=== PATIENT | male | born 1930 | race Caucasian/White ===

== ENCOUNTER 2018-08-21 16:24 | Inpatient (IN) | payer MEDICARE, OTHER ==
[2018-08-21] MEDS ORDERED: Sodium Chloride 0.9% 10 ML Syringe FLUSH PRN (17:04)
--- NOTE | 2018-08-21 17:09 | EDM.PDOC ---
ED HPI GENERAL MEDICAL PROBLEM - General Chief Complaint: Lower Extremity Injury/Pain Stated Complaint: BAD TOE ON RIGHT FOOT ( BLACK WITH RED STREAK) Time Seen by Provider: 08/21/18 16:41 Source of Information: Reports: Patient, Family (spouse gives the majority of hx , patient does answer yes and no questions but confused with advanced dementia) , RN Notes Reviewed - History of Present Illness INITIAL COMMENTS - FREE TEXT/NARRATIVE: 88-year-old male has been brought here by his for evaluation of what sounds like developing cellulitis right foot. He has had a gangrenous right second toe for about 2 months. Patient has advanced dementia, unable to give any meaningful history. Hx obtained is from his . He has previously been evaluated by Dr. Albright, Real Estate Director who has stated that "he would not survive surgery" but if the foot becomes infected he would need to be admitted for IV antibiotics. His states that his distal foot has started becoming erythematous, swollen over the past 2 or 3 days. There has been no obvious fever or chills. No abdominal pain vomiting or diarrhea. Patient has very advanced dementia with onset of dementia symptoms about 6 or 7 years ago. She has been managing at home up to this point with some hired home assistance help but care has become increasingly difficult. 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 He also is on medication for hypertension and does have a pacemaker. His states that his CODE STATUS is DNR, DNI. - Related Data Allergies Allergy/AdvReac Type Severity Reaction Status Date / Time hydrocodone bitartrate Allergy Severe Hives Verified 08/21/18 16:44 [From [facility]] Sulfa (Sulfonamide Allergy Severe Hives Verified 08/21/18 16:44 Antibiotics) acetaminophen [From [facility]] Allergy Unknown Hives Verified 08/21/18 16:44 donepezil [Donepezil] Allergy Unknown Diarrhea Verified 08/21/18 16:44 quetiapine Allergy Unknown Agitation Verified 08/21/18 16:44 Home Meds: Home Meds Aspirin [Adult Low Dose Aspirin EC] 81 mg PO DAILY 12/10/13 [History] Dutasteride [Avodart] 0.5 mg PO DAILY 12/10/13 [History] Furosemide [Lasix] 40 mg PO DAILY 12/10/13 [History] Insulin Aspart [Novolog Flexpen] 0 unit SUBCUT ACDIN 12/10/13 [History] Insulin Aspart [Novolog Flexpen] 12 unit SQ [id number] 12/10/13 [History] Insulin Glarg,Human.Rec.Analog [Lantus Solostar] 20 unit SQ BID 12/10/13 [ History] Isosorbide Mononitrate [Imdur] 60 mg PO DAILY 12/10/13 [History] Nebivolol [Bystolic] 20 mg PO DAILY 12/10/13 [History] atorvaSTATin [Lipitor] 10 mg PO DAILY 12/10/13 [History] Nitroglycerin 0.4 mg SL ONCALL PRN #30 12/15/13 [Rx] Past Medical History HEENT History: Reports: Other (See Below) Other HEENT History: lens implanted Cardiovascular History: Reports: Hypertension, Pacemaker Respiratory History: Reports: Pneumonia, Recurrent Gastrointestinal History: Reports: Cholelithiasis Genitourinary History: Reports: Prostate Disorder Endocrine/Metabolic History: Reports: Diabetes, Type II (Uses insulin for diabetes control. Has not yet eaten today and has not taken insulin yet today.) - Past Surgical History HEENT Surgical History: Reports: Eye Surgery GI Surgical History: Reports: Cholecystectomy Social & Family History - Caffeine Use Caffeine Use: Reports: Coffee - Living Situation & Occupation Living situation: Reports: , with Spouse (He was in country house for the last month but got out on Sunday, February 18. His was having surgery and could not look after him for a period of time) Occupation: Retired Review of Systems - Review of Systems Review Of Systems: See Below Constitutional: Reports: No Symptoms Mouth/Throat: Reports: No Symptoms Respiratory: Denies: Shortness of Breath Cardiovascular: Denies: Chest Pain GI/Abdominal: Denies: Abdominal Pain, Diarrhea, Vomiting Musculoskeletal: Reports: Other (Gangrenous right second toe, now developing swelling and erythema distal right foot) Skin: Reports: Erythema (Distal right foot) Neurological: Reports: Difficulty Walking (Walks with a cane), Weakness ( Generalized) ED EXAM, GENERAL - Physical Exam Exam: See Below General Appearance: Alert, Anxious (Mild) Eye Exam: Bilateral Eye: PERRL Throat/Mouth: Normal Inspection Neck: Supple Respiratory/Chest: No Respiratory Distress, Lungs Clear, Normal Breath Sounds Cardiovascular: Regular Rate, Rhythm GI/Abdominal: Soft, Non-Tender, Other (Moderately distended) Extremities: Redness (There is redness of the distal right foot, mild swelling) , Other (Right second toe is gangrenous, walk, foul-smelling, no active drainage ) Skin Exam: Warm, Other (Multiple excoriated lesions of his anterior legs bilateral, states he "picks at his legs") Course - Vital Signs Last Recorded V/S: Last Vital Signs Temp 97.2 F 08/21/18 16:35 Pulse 83 08/21/18 16:35 Resp 18 08/21/18 16:35 BP 154/73 H 08/21/18 16:35 Pulse Ox 96 08/21/18 16:35 - Orders/Labs/Meds Orders: Active Orders 24 hr Category Date Time Status EKG Documentation Completion [RC] ASDIRECTED Care 08/21/18 19:34 Active Notify Provider Consults [RC] ASDIRECTED Care 08/21/18 19:18 Active POC Glucose [Blood Glucose Check, Bedside] [RC] ONETIME Care 08/21/18 17:04 Active Peripheral IV Care [RC] . DIRECTED Care 08/21/18 17:05 Active Consult to Physician [CONS] Urgent Cons 08/21/18 19:16 Active CBC WITH AUTO DIFF [HEME] AM Lab 08/22/18 05:11 Ordered COMPREHENSIVE METABOLIC PN,CMP [CHEM] AM Lab 08/22/18 05:11 Ordered CULTURE BLOOD [BC] Stat Lab 08/21/18 18:15 Received GLYCOSYLATED HEMOGLOBIN,HGBA1C [CHEM] AM Lab 08/22/18 05:11 Ordered INR,PT,PROTHROMBIN TIME [COAG] AM Lab 08/22/18 05:11 Ordered LACTIC ACID [CHEM] AM Lab 08/22/18 05:11 Ordered LACTIC ACID [CHEM] Stat Lab 08/21/18 19:29 Ordered LACTIC ACID [CHEM] Timed Lab 08/21/18 19:29 Ordered PHOSPHORUS [CHEM] AM Lab 08/22/18 05:00 Ordered TROPONIN I [CHEM] AM Lab 08/22/18 05:11 Ordered Aspirin [Halfprin] Med 08/22/18 09:00 Active 81 mg PO DAILY Carvedilol [Coreg] Med 08/22/18 07:00 Active 12.5 mg PO BIDMEALS Finasteride [Proscar] Med 08/22/18 09:00 Active 5 mg PO DAILY Piperacillin/Tazobactam [Piperacil-Tazobact] 4.5 gm Med 08/21/18 18:30 Active Sodium Chloride 0.9% [Normal Saline] 100 ml IV Q8H Simvastatin [Zocor] Med 08/22/18 21:00 Active 10 mg PO BEDTIME Sodium Chloride 0.9% [Saline Flush] Med 08/21/18 17:04 Active 10 ml FLUSH ASDIRECTED PRN Vancomycin [Vancocin] 1 gm Med 08/21/18 19:35 Ordered Sodium Chloride 0.9% [Normal Saline] 250 ml IV ONETIME Peripheral IV Insertion Pediatric [OM.PC] Routine Oth 08/21/18 17:05 Ordered EKG 12 Lead [EK] AM Ther 08/22/18 05:11 Ordered Medication Orders Aspirin (Halfprin) 81 mg PO DAILY PARUL Carvedilol (Coreg) 12.5 mg PO BIDMEALS PARUL Finasteride (Proscar) 5 mg PO DAILY PARUL Piperacillin Sod/Tazobactam (Sod 4.5 gm/ Sodium Chloride) 100 mls @ 25 mls/hr IV Q8H PARUL Last Admin: 08/21/18 18:30 Dose: 200 mls/hr Vancomycin HCl 1 gm/ Sodium (Chloride) 250 mls @ 250 mls/hr IV ONETIME ONE Stop: 08/21/18 20:34 Simvastatin (Zocor) 10 mg PO BEDTIME PARUL Sodium Chloride (Saline Flush) 10 ml FLUSH ASDIRECTED PRN PRN Reason: Keep Vein Open Last Admin: 08/21/18 18:43 Dose: 10 ml Labs: Laboratory Tests 08/21/18 08/21/18 08/21/18 Range/Units 18:15 18:15 18:15 WBC 14.38 H (4.23-9.07) K/mm3 RBC 3.59 L (4.63-6.08) M/mm3 Hgb 10.3 L D (13.7-17.5) gm/L Hct 31.9 L (40.1-51.0) % MCV 88.9 (79.0-92.2) fl MCH 28.7 (25.7-32.2) pg MCHC 32.3 (32.2-35.5) g/dl RDW Std Deviation 46.7 H (35.1-43.9) fL Plt Count 340 H (163-337) K/mm3 MPV 10.0 (9.4-12.3) fl Neutrophils % (Manual) 86 H (40-60) % Band Neutrophils % 0 (0-10) % Lymphocytes % (Manual) 11 L (20-40) % Atypical Lymphs % 0 % Monocytes % (Manual) 3 (2-10) % Eosinophils % (Manual) 0 L (0.8-7.0) % Basophils % (Manual) 0 L (0.2-1.2) Platelet Estimate Adequate RBC Morph Comment Normal Sodium 138 (136-145) mEq/L Potassium 3.5 (3.5-5.1) mEq/L Chloride 101 (98-107) mEq/L Carbon Dioxide 27 (21-32) mEq/L Anion Gap 13.5 (5-15) BUN 27 H (7-18) mg/dL Creatinine 1.5 H (0.7-1.3) mg/dL Est Cr Clr Drug Dosing 32.30 mL/min Estimated GFR (MDRD) 44 (>60) mL/min BUN/Creatinine Ratio 18.0 (14-18) Glucose 211 H (83-115) mg/dL POC Glucose (83-110) mg/dL Lactic Acid (0.4-2.0) mmol/L Calcium 8.6 (8.5-10.1) mg/dL Total Bilirubin 1.2 H (0.2-1.0) mg/dL AST 18 (15-37) U/L ALT 21 (16-63) U/L Alkaline Phosphatase 116 (46-116) U/L NT-Pro-B Natriuret Pep 1384 H (0-450) pg/mL Total Protein 7.7 (6.4-8.2) g/dl Albumin 2.9 L (3.4-5.0) g/dl Globulin 4.8 gm/dL Albumin/Globulin Ratio 0.6 L (1-2) 08/21/18 08/21/18 Range/Units 18:15 18:33 WBC (4.23-9.07) K/mm3 RBC (4.63-6.08) M/mm3 Hgb (13.7-17.5) gm/L Hct (40.1-51.0) % MCV (79.0-92.2) fl MCH (25.7-32.2) pg MCHC (32.2-35.5) g/dl RDW Std Deviation (35.1-43.9) fL Plt Count (163-337) K/mm3 MPV (9.4-12.3) fl Neutrophils % (Manual) (40-60) % Band Neutrophils % (0-10) % Lymphocytes % (Manual) (20-40) % Atypical Lymphs % % Monocytes % (Manual) (2-10) % Eosinophils % (Manual) (0.8-7.0) % Basophils % (Manual) (0.2-1.2) Platelet Estimate RBC Morph Comment Sodium (136-145) mEq/L Potassium (3.5-5.1) mEq/L Chloride (98-107) mEq/L Carbon Dioxide (21-32) mEq/L Anion Gap (5-15) BUN (7-18) mg/dL Creatinine (0.7-1.3) mg/dL Est Cr Clr Drug Dosing mL/min Estimated GFR (MDRD) (>60) mL/min BUN/Creatinine Ratio (14-18) Glucose (83-115) mg/dL POC Glucose 199 H (83-110) mg/dL Lactic Acid 2.2 H (0.4-2.0) mmol/L Calcium (8.5-10.1) mg/dL Total Bilirubin (0.2-1.0) mg/dL AST (15-37) U/L ALT (16-63) U/L Alkaline Phosphatase (46-116) U/L NT-Pro-B Natriuret Pep (0-450) pg/mL Total Protein (6.4-8.2) g/dl Albumin (3.4-5.0) g/dl Globulin gm/dL Albumin/Globulin Ratio (1-2) Meds: Medications Generic Name Dose Route Start Last Admin Trade Name Freq PRN Reason Stop Dose Admin Aspirin 81 mg 08/22/18 09:00 Halfprin PO DAILY PARUL Carvedilol 12.5 mg 08/22/18 07:00 Coreg PO BIDMEALS PARUL Finasteride 5 mg 08/22/18 09:00 Proscar PO DAILY PARUL Piperacillin Sod/Tazobactam 100 mls @ 25 mls/hr 08/21/18 18:30 08/21/18 18:30 Sod 4.5 gm/ Sodium Chloride IV 200 mls/hr Q8H PARUL Administration Vancomycin HCl 1 gm/ Sodium 250 mls @ 250 mls/hr 08/21/18 19:35 Chloride IV 08/21/18 20:34 ONETIME ONE Simvastatin 10 mg 08/22/18 21:00 Zocor PO BEDTIME PARUL Sodium Chloride 10 ml 08/21/18 17:04 08/21/18 18:43 Saline Flush FLUSH 10 ml ASDIRECTED PRN Administration Keep Vein Open Discontinued Medications Generic Name Dose Route Start Last Admin Trade Name Freq PRN Reason Stop Dose Admin Lidocaine HCl Confirm 08/21/18 17:52 08/21/18 17:58 Xylocaine-Mpf 1% Administered 08/21/18 17:53 Not Given Dose 2 mls @ as directed .ROUTE .STK-MED ONE Sodium Chloride 500 mls @ 999 mls/hr 08/21/18 18:56 08/21/18 19:18 Normal Saline IV 08/21/18 19:26 999 mls/hr .BOLUS ONE Administration Lidocaine HCl 2 ml 08/21/18 17:56 08/21/18 17:58 Xylocaine-Mpf 1% .XX 08/21/18 17:57 2 ml ONETIME ONE Administration - Re-Assessments/Exams Free Text/Narrative Re-Assessment/Exam: 08/21/18 19:08. Have called Dr Puckett, Hospitalist systems management consultant to discuss findings, need for admission. He has asked that I get a surgical consult first. Dr Cortes, General Surgeon systems management consultant has come to ED, examined foot. Does not recomend surgery at this time, does not believe he is a surgical candidate from a general health standpoint and anesthesia risk. Recomends IV antibiotics, will dictate a note in the morning. Of note Samantha, our hospital criminal justice social worker has also stopped by at time of patient arrival and informs me that Kristine Frances, Adult protection criminal justice social worker has filed an open adult protection report that patient is needing care at a higher level than what his is able to provide at home in terms of daily cares, advancing dementia. She has asked that he be admitted to the hospital for treatment of his foot infection, any other medical needs and than consideration for intermediate placement. I have shared this information with Dr Puckett who is discussing sx and situation with family at this time. As previously noted patient had advanced dementia, is DNR, DNI. Departure - Departure Time of Disposition: 19:04 Disposition: Admitted As Inpatient 65 Condition: Poor Clinical Impression: Peripheral vascular disease, Gangrenous toe Cellulitis Qualifiers: Site of cellulitis: extremity Site of cellulitis of extremity: lower extremity Laterality: right Qualified Code(s): L03.115 - Cellulitis of right lower limb - Discharge Information Referrals: Murphy Gan MD [Primary Care Provider] - Forms: ED Department Discharge ED Communication - Discussed Case With (1) Discussed Case With (1): Admitting Provider (Lavern, decision to admit at about 19:00.) - My Orders Last 24 Hours: My Active Orders 08/21/18 17:04 POC Glucose [Blood Glucose Check, Bedside] [RC] ONETIME Sodium Chloride 0.9% [Saline Flush] 10 ml FLUSH ASDIRECTED PRN 08/21/18 17:05 Peripheral IV Care [RC] . DIRECTED Peripheral IV Insertion Pediatric [OM.PC] Routine 08/21/18 18:15 CULTURE BLOOD [BC] Stat 08/21/18 18:30 Piperacillin/Tazobactam [Piperacil-Tazobact] 4.5 gm Sodium Chloride 0.9% [ Normal Saline] 100 ml IV Q8H 08/21/18 19:16 Consult to Physician [CONS] Urgent 08/21/18 19:18 Notify Provider Consults [RC] ASDIRECTED - Assessment/Plan Last 24 Hours: My Active Orders 08/21/18 17:04 POC Glucose [Blood Glucose Check, Bedside] [RC] ONETIME Sodium Chloride 0.9% [Saline Flush] 10 ml FLUSH ASDIRECTED PRN 08/21/18 17:05 Peripheral IV Care [RC] . DIRECTED Peripheral IV Insertion Pediatric [OM.PC] Routine 08/21/18 18:15 CULTURE BLOOD [BC] Stat 08/21/18 18:30 Piperacillin/Tazobactam [Piperacil-Tazobact] 4.5 gm Sodium Chloride 0.9% [ Normal Saline] 100 ml IV Q8H 08/21/18 19:16 Consult to Physician [CONS] Urgent 08/21/18 19:18 Notify Provider Consults [RC] ASDIRECTED
[2018-08-21] MEDS ORDERED: Lidocaine 1% 2 ML ONE (17:52)
[2018-08-21] MEDS ORDERED: Lidocaine 1% PF 2 ML SDV ONE (17:56)
[2018-08-21] MEDS: Piperacillin/Tazobactam 4.5 GM in Sodium Chloride 0.9% 100 ML IV SCH (18:30)
[2018-08-21] MEDS ORDERED: Sodium Chloride 0.9% 500 ML IV ONE (18:56)
--- NOTE | 2018-08-21 19:13 | CR ---
Chest: Portable view of the chest was obtained. Comparison: Prior chest x-ray of 02/21/18. Heart size and mediastinum are within normal limits for portable technique. Lungs are clear with no acute parenchymal change. Minimal scarring is noted within the left lung base. Pacemaker is noted. Bony structures are grossly intact. Impression: 1. Minimal scarring within the left base. Other incidental findings. Nothing acute is appreciated. Diagnostic code #2
[2018-08-21] MEDS ORDERED: HYDROmorphone 1 MG/ML Syringe IVPUSH PRN (19:43)
[2018-08-21] MEDS ORDERED: Ondansetron 4 MG/2 ML SDV IV PRN (19:43)
--- NOTE | 2018-08-21 19:53 | PCM.HP ---
H&P History of Present Illness - General Date of Service: 08/21/18 Admit Problem/Dx: Admission Diagnosis/Problem Admission Diagnosis/Problem Gangrene of toe 88 yo WM with DM, dementia, pacemaker admitted with gangrenous right second toe , started 7 weeks ago, visited local performance instructor, no abx prescribed. noted increased edema, erythema, was brought to ED. Surgery consulted, discussed. Admitted as IP for further treatment. Source of Information: Family - Related Data Allergies/Adverse Reactions: Allergies Allergy/AdvReac Type Severity Reaction Status Date / Time hydrocodone bitartrate Allergy Severe Hives Verified 08/21/18 16:44 [From [place]] Sulfa (Sulfonamide Allergy Severe Hives Verified 08/21/18 16:44 Antibiotics) acetaminophen [From [place]] Allergy Unknown Hives Verified 08/21/18 16:44 donepezil [Donepezil] Allergy Unknown Diarrhea Verified 08/21/18 16:44 quetiapine Allergy Unknown Agitation Verified 08/21/18 16:44 Home Medications: Home Meds Aspirin [Adult Low Dose Aspirin EC] 81 mg PO DAILY 12/10/13 [History] Dutasteride [Avodart] 0.5 mg PO DAILY 12/10/13 [History] Furosemide [Lasix] 40 mg PO DAILY 12/10/13 [History] Insulin Aspart [Novolog Flexpen] 0 unit SUBCUT ACDIN 12/10/13 [History] Insulin Aspart [Novolog Flexpen] 12 unit SQ ACBRKBED 12/10/13 [History] Insulin Glarg,Human.Rec.Analog [Lantus Solostar] 20 unit SQ BID 12/10/13 [ History] Isosorbide Mononitrate [Imdur] 60 mg PO DAILY 12/10/13 [History] Nebivolol [Bystolic] 20 mg PO DAILY 12/10/13 [History] atorvaSTATin [Lipitor] 10 mg PO DAILY 12/10/13 [History] Nitroglycerin 0.4 mg SL ONCALL PRN #30 12/15/13 [Rx] Past Medical History HEENT History: Reports: Other (See Below) Other HEENT History: lens implanted Cardiovascular History: Reports: Hypertension, Pacemaker Respiratory History: Reports: Pneumonia, Recurrent Gastrointestinal History: Reports: Cholelithiasis Genitourinary History: Reports: Prostate Disorder Neurological History: Reports: Alzheimers Disease Endocrine/Metabolic History: Reports: Diabetes, Type II (Uses insulin for diabetes control. Has not yet eaten today and has not taken insulin yet today.) Oncologic (Cancer) History: Reports: Prostate Dermatologic History: Reports: Cellulitis - Past Surgical History HEENT Surgical History: Reports: Eye Surgery GI Surgical History: Reports: Cholecystectomy Social & Family History - Family History Family Medical History: Noncontributory - Tobacco Use Smoking Status *Q: Former Smoker Years of Tobacco use: 50 Packs/Tins Daily: 1 Used Tobacco, but Quit: No - Caffeine Use Caffeine Use: Reports: Coffee - Recreational Drug Use Recreational Drug Use: No - Living Situation & Occupation Living situation: Reports: , with Spouse (He was in country house for the last month but got out on Sunday, February 18. His was having surgery and could not look after him for a period of time) Occupation: Retired H&P Review of Systems - Review of Systems: Review Of Systems: See Below General: Reports: Weight Loss. Denies: Fever, Chills HEENT: Reports: No Symptoms Pulmonary: Denies: Wheezing, Cough, Sputum Cardiovascular: Reports: Edema. Denies: Palpitations, Syncope Gastrointestinal: Reports: Diarrhea, Decreased Appetite. Denies: Hematemesis, Hematochezia, Melena Genitourinary: Reports: Urgency, Incontinence Musculoskeletal: Reports: No Symptoms Skin: Denies: Jaundice, Bruising Psychiatric: Reports: Confusion. Denies: Suicidal Ideation Neurological: Reports: Difficulty Walking. Denies: Seizure, Syncope Hematologic/Lymphatic: Denies: Easy Bleeding, Easy Bruising Exam - Exam Exam: See Below - Vital Signs Vital Signs: Last Vital Signs Temp 97.2 F 08/21/18 16:35 Pulse 83 08/21/18 16:35 Resp 18 08/21/18 16:35 BP 154/73 H 08/21/18 16:35 Pulse Ox 96 08/21/18 16:35 Weight: 204 lb - Exam General: Alert, Oriented (self only), Cooperative HEENT: Conjunctiva Clear, EOMI Neck: Supple, Trachea Midline Lungs: Clear to Auscultation, Normal Respiratory Effort. No: Wheezing Cardiovascular: Regular Rate, Normal S1, Normal S2. No: Rubs GI/Abdominal Exam: Normal Bowel Sounds, Soft, Non-Tender Extremities: Other (right second toe gangrenous, erythema, edema mid metatarsal. ) Peripheral Pulses: 1+: Dorsalis Pedis (L), Dorsalis Pedis (R), 2+: Carotid (L), Carotid (R) Skin: Warm, Dry Neurological: Cranial Nerves Intact Neuro Extensive - Mental Status: Disorientation to Place Psychiatric: Normal Affect - Patient Data Lab Results Last 24 hrs: Laboratory Results - last 24 hr 08/21/18 08/21/18 08/21/18 Range/Units 18:15 18:15 18:15 WBC 14.38 H (4.23-9.07) K/mm3 RBC 3.59 L (4.63-6.08) M/mm3 Hgb 10.3 L D (13.7-17.5) gm/L Hct 31.9 L (40.1-51.0) % MCV 88.9 (79.0-92.2) fl MCH 28.7 (25.7-32.2) pg MCHC 32.3 (32.2-35.5) g/dl RDW Std Deviation 46.7 H (35.1-43.9) fL Plt Count 340 H (163-337) K/mm3 MPV 10.0 (9.4-12.3) fl Neutrophils % (Manual) 86 H (40-60) % Band Neutrophils % 0 (0-10) % Lymphocytes % (Manual) 11 L (20-40) % Atypical Lymphs % 0 % Monocytes % (Manual) 3 (2-10) % Eosinophils % (Manual) 0 L (0.8-7.0) % Basophils % (Manual) 0 L (0.2-1.2) Platelet Estimate Adequate RBC Morph Comment Normal Sodium 138 (136-145) mEq/L Potassium 3.5 (3.5-5.1) mEq/L Chloride 101 (98-107) mEq/L Carbon Dioxide 27 (21-32) mEq/L Anion Gap 13.5 (5-15) BUN 27 H (7-18) mg/dL Creatinine 1.5 H (0.7-1.3) mg/dL Est Cr Clr Drug Dosing 32.30 mL/min Estimated GFR (MDRD) 44 (>60) mL/min BUN/Creatinine Ratio 18.0 (14-18) Glucose 211 H (83-115) mg/dL POC Glucose (83-110) mg/dL Lactic Acid (0.4-2.0) mmol/L Calcium 8.6 (8.5-10.1) mg/dL Total Bilirubin 1.2 H (0.2-1.0) mg/dL AST 18 (15-37) U/L ALT 21 (16-63) U/L Alkaline Phosphatase 116 (46-116) U/L NT-Pro-B Natriuret Pep 1384 H (0-450) pg/mL Total Protein 7.7 (6.4-8.2) g/dl Albumin 2.9 L (3.4-5.0) g/dl Globulin 4.8 gm/dL Albumin/Globulin Ratio 0.6 L (1-2) 08/21/18 08/21/18 Range/Units 18:15 18:33 WBC (4.23-9.07) K/mm3 RBC (4.63-6.08) M/mm3 Hgb (13.7-17.5) gm/L Hct (40.1-51.0) % MCV (79.0-92.2) fl MCH (25.7-32.2) pg MCHC (32.2-35.5) g/dl RDW Std Deviation (35.1-43.9) fL Plt Count (163-337) K/mm3 MPV (9.4-12.3) fl Neutrophils % (Manual) (40-60) % Band Neutrophils % (0-10) % Lymphocytes % (Manual) (20-40) % Atypical Lymphs % % Monocytes % (Manual) (2-10) % Eosinophils % (Manual) (0.8-7.0) % Basophils % (Manual) (0.2-1.2) Platelet Estimate RBC Morph Comment Sodium (136-145) mEq/L Potassium (3.5-5.1) mEq/L Chloride (98-107) mEq/L Carbon Dioxide (21-32) mEq/L Anion Gap (5-15) BUN (7-18) mg/dL Creatinine (0.7-1.3) mg/dL Est Cr Clr Drug Dosing mL/min Estimated GFR (MDRD) (>60) mL/min BUN/Creatinine Ratio (14-18) Glucose (83-115) mg/dL POC Glucose 199 H (83-110) mg/dL Lactic Acid 2.2 H (0.4-2.0) mmol/L Calcium (8.5-10.1) mg/dL Total Bilirubin (0.2-1.0) mg/dL AST (15-37) U/L ALT (16-63) U/L Alkaline Phosphatase (46-116) U/L NT-Pro-B Natriuret Pep (0-450) pg/mL Total Protein (6.4-8.2) g/dl Albumin (3.4-5.0) g/dl Globulin gm/dL Albumin/Globulin Ratio (1-2) Result Diagrams: 08/21/18 18:15 08/21/18 18:15 - Problem List (1) Gangrenous toe SNOMED Code(s): 022901783 ICD Code: I96 - GANGRENE, NOT ELSEWHERE CLASSIFIED Status: Acute Current Visit: Yes (2) Diabetes mellitus SNOMED Code(s): 93012922 ICD Code: E11.9 - TYPE 2 DIABETES MELLITUS WITHOUT COMPLICATIONS Status: Acute Current Visit: Yes Qualifiers: Diabetes mellitus type: type 2 Diabetes mellitus chcf insulin use: with chcf use Diabetes mellitus complication status: with circulatory complication Diabetes mellitus complication detail: with peripheral angiopathy with gangrene Qualified Code(s): E11.52 - Type 2 diabetes mellitus with diabetic peripheral angiopathy with gangrene; 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 Problem List Initiated/Reviewed/Updated: Yes Orders Last 24hrs: Active Orders 24 hr Category Date Time Status Patient Status [ADT] Routine ADT 08/21/18 19:40 Ordered Bedrest Bedside Commode [RC] ASDIRECTED Care 08/21/18 19:43 Ordered Blood Glucose Check, Bedside [RC] Q6HR Care 08/21/18 19:38 Ordered Blood Glucose Check, Bedside [RC] QIDACANDBED Care 08/21/18 19:43 Ordered EKG Documentation Completion [RC] ASDIRECTED Care 08/21/18 19:34 Ordered Height and Weight [RC] DAILY Care 08/21/18 19:43 Ordered Intake and Output [RC] QSHIFT Care 08/21/18 19:43 Ordered Notify Provider Consults [RC] ASDIRECTED Care 08/21/18 19:18 Active Oxygen Therapy [RC] PRN Care 08/21/18 19:43 Ordered POC Glucose [Blood Glucose Check, Bedside] [RC] ONETIME Care 08/21/18 17:04 Active Peripheral IV Care [RC] . DIRECTED Care 08/21/18 17:05 Active Vital Signs [RC] Q4H Care 08/21/18 19:40 Ordered Vital Signs [RC] Q4H Care 08/21/18 19:43 Ordered Consult to Physician [CONS] Urgent Cons 08/21/18 19:16 Active Consistent Carbohydrate Diet [DIET] Diet 08/21/18 Breakfast Ordered Foot wo Cont Rt [CT] Stat Exams 08/21/18 19:39 Ordered CBC WITH AUTO DIFF [HEME] AM Lab 08/22/18 05:11 Ordered COMPREHENSIVE METABOLIC PN,CMP [CHEM] AM Lab 08/22/18 05:11 Ordered CULTURE BLOOD [BC] Stat Lab 08/21/18 18:15 Received GLYCOSYLATED HEMOGLOBIN,HGBA1C [CHEM] AM Lab 08/22/18 05:11 Ordered INR,PT,PROTHROMBIN TIME [COAG] AM Lab 08/22/18 05:11 Ordered LACTIC ACID [CHEM] AM Lab 08/22/18 05:11 Ordered LACTIC ACID [CHEM] Stat Lab 08/21/18 19:29 Ordered LACTIC ACID [CHEM] Timed Lab 08/21/18 19:29 Ordered PHOSPHORUS [CHEM] AM Lab 08/22/18 05:00 Ordered PTT,PARTIAL THROMBOPLSTIN TIME [COAG] AM Lab 08/22/18 05:11 Ordered TROPONIN I [CHEM] AM Lab 08/22/18 05:11 Ordered UA W/MICROSCOPIC [URIN] Routine Lab 08/21/18 19:43 Ordered Aspirin [Halfprin] Med 08/22/18 09:00 Ordered 81 mg PO DAILY Docusate Sodium [Colace] Med 08/21/18 21:00 Ordered 100 mg PO BID Dutasteride Med 08/22/18 09:00 Ordered 0.5 mg PO DAILY HYDROmorphone [Dilaudid] Med 08/21/18 19:43 Ordered 0.25 mg IVPUSH Q2H PRN Heparin Sodium Med 08/21/18 19:45 Ordered 5,000 units SUBCUT Q8H Insulin Lispro [HumaLOG] Med 08/21/18 22:00 Ordered See Protocol SUBCUT QIDACANDBED Lactated Ringers @ 100 MLS/HR(1000ml Bag) Med 08/21/18 19:45 Ordered Lactated Ringers [Ringers, Lactated] 1,000 ml IV ASDIRECTED Nebivolol [Bystolic] Med 08/22/18 09:00 Ordered 20 mg PO DAILY Ondansetron [Zofran] Med 08/21/18 19:43 Ordered 4 mg IV Q4H PRN Piperacillin/Tazobactam [Piperacil-Tazobact] 4.5 gm Med 08/21/18 18:30 Active Sodium Chloride 0.9% [Normal Saline] 100 ml IV Q8H Sodium Chloride 0.9% [Saline Flush] Med 08/21/18 17:04 Active 10 ml FLUSH ASDIRECTED PRN Vancomycin [Vancocin] 1 gm Med 08/21/18 19:35 Ordered Sodium Chloride 0.9% [Normal Saline] 250 ml IV ONETIME atorvaSTATin Med 08/22/18 09:00 Ordered 10 mg PO DAILY Peripheral IV Insertion Pediatric [OM.PC] Routine Oth 08/21/18 17:05 Ordered Resuscitation Status Routine Resus Stat 08/21/18 19:43 Ordered EKG 12 Lead [EK] AM Ther 08/22/18 05:11 Ordered Medication Orders Aspirin (Halfprin) 81 mg PO DAILY [facility] Carvedilol (Coreg) 12.5 mg PO BIDMEALS [facility] Docusate Sodium (Colace) 100 mg PO BID [facility] Finasteride (Proscar) 5 mg PO DAILY [facility] Heparin Sodium (Porcine) (Heparin Sodium) 5,000 units SUBCUT Q8H [facility] Hydromorphone HCl (Dilaudid) 0.25 mg IVPUSH Q2H PRN PRN Reason: Pain (severe 7-10) Piperacillin Sod/Tazobactam (Sod 4.5 gm/ Sodium Chloride) 100 mls @ 25 mls/hr IV Q8H [facility] Last Admin: 08/21/18 18:30 Dose: 200 mls/hr Vancomycin HCl 1 gm/ Sodium (Chloride) 250 mls @ 250 mls/hr IV ONETIME ONE Stop: 08/21/18 20:34 Lactated Ringer's (Ringers, Lactated) 1,000 mls @ 100 mls/hr IV ASDIRECTED [facility] Insulin Human Lispro (Humalog) 0 unit SUBCUT QIDACANDBED [facility]; Protocol Ondansetron HCl (Zofran) 4 mg IV Q4H PRN PRN Reason: Nausea/Vomiting Simvastatin (Zocor) 10 mg PO BEDTIME [facility] Sodium Chloride (Saline Flush) 10 ml FLUSH ASDIRECTED PRN PRN Reason: Keep Vein Open Last Admin: 08/21/18 18:43 Dose: 10 ml 1. IV abx, pending BCx. 2. IVF. 3. Surgery consultation, obtained, discussed. 4. Foot CT, possible MRI if warranted. 5. placement SNF after discharge. 6. SSI, A1C. 7. DNR/DNI
[2018-08-21] MEDS ORDERED: Vancomycin 1500 MG in Sodium Chloride 0.9% 500 ML IV SCH ×3 (21:00)
--- NOTE | 2018-08-21 21:06 | CT ---
CT right foot Technique: Multiple axial sections through the right foot were obtained. Intravenous contrast was not utilized. Findings: Diffuse soft tissue edema is seen. Soft tissue air is seen within the second digit. Air is also noted within the bones of the second toe involving distal aspect of the proximal phalanx, middle phalanx and distal phalanx compatible with osteomyelitis. Degenerative change with degenerative cysts are seen within the first MTP joint. Plantar spur is seen. Joint space narrowing and degenerative cystic change is noted within the posterior subtalar joint. Degenerative cystic change is noted between the navicular and first cuneiform bone. Osteopenia is seen. No fracture is identified. Vascular calcification is present. Impression: 1. Diffuse soft tissue edema. 2. Soft tissue air seen within the second digit compatible with cellulitis. 3. Air within the bones of the second toe compatible with osteomyelitis. 4. Degenerative change as noted above. Diagnostic code #5
[2018-08-21] MEDS: Docusate Sodium 100 MG Cap PO SCH (21:43)
[2018-08-21] MEDS: Heparin Sodium 5,000 Units/ML Vial SUBCUT SCH (21:43)
[2018-08-21] MEDS: Insulin Lispro 100 Units/ML 3 ML Vial SUBCUT SCH (21:48)
[2018-08-22] MEDS: Piperacillin/Tazobactam 4.5 GM in Sodium Chloride 0.9% 100 ML IV SCH ×3 (01:31→18:11)
[2018-08-22] MEDS: Heparin Sodium 5,000 Units/ML Vial SUBCUT SCH ×3 (05:03→21:04)
[2018-08-22] MEDS: Lactated Ringers 1,000 ML IV SCH (05:53)
[2018-08-22] MEDS: Carvedilol 12.5 MG Tab PO SCH ×2 (06:22→18:10)
[2018-08-22] MEDS ORDERED: HYDROmorphone 0.5 MG/0.5 ML Syringe IVPUSH PRN (07:25)
--- NOTE | 2018-08-22 08:49 | PCM.SN ---
Hx. 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 noted increased edema, erythema, was brought to ED. Surgery consulted, discussed. Admitted as IP for further treatment. - Related Data Allergies/Adverse Reactions: Allergies Allergy/AdvReac Type Severity Reaction Status Date / Time hydrocodone bitartrate Allergy Mild Hives Verified 08/22/18 07:58 [From [place]] Sulfa (Sulfonamide Allergy Mild Hives Verified 08/22/18 07:58 Antibiotics) vancomycin Allergy Mild Itching Verified 08/22/18 07:58 acetaminophen [From [place]] Allergy Unknown Hives Verified 08/21/18 16:44 donepezil [Donepezil] AdvReac Unknown Diarrhea Verified 08/22/18 07:58 quetiapine AdvReac Unknown Agitation Verified 08/22/18 07:58 Home Medications: Home Meds Aspirin [Adult Low Dose Aspirin EC] 81 mg PO DAILY 12/10/13 [History] Dutasteride [Avodart] 0.5 mg PO DAILY 12/10/13 [History] Furosemide [Lasix] 40 mg PO DAILY 12/10/13 [History] Insulin Aspart [Novolog Flexpen] 0 unit SUBCUT ACDIN 12/10/13 [History] Insulin Aspart [Novolog Flexpen] 12 unit SQ ACBRKBED 12/10/13 [History] Insulin Glarg,Human.Rec.Analog [Lantus Solostar] 20 unit SQ BID 12/10/13 [ History] Isosorbide Mononitrate [Imdur] 60 mg PO DAILY 12/10/13 [History] Nebivolol [Bystolic] 20 mg PO DAILY 12/10/13 [History] atorvaSTATin [Lipitor] 10 mg PO DAILY 12/10/13 [History] Nitroglycerin 0.4 mg SL ONCALL PRN #30 12/15/13 [Rx] Exam - - Vital Signs Vital Signs: Last Vital Signs Temp 98.1 F 08/22/18 08:00 Pulse 72 08/22/18 08:00 Resp 15 08/22/18 08:00 BP 122/93 H 08/22/18 08:00 Pulse Ox 94 L 05/02/19 08:00 Exam - Vital Signs Vital Signs: Last Vital Signs Temp 98.1 F 08/22/18 08:00 Pulse 72 08/22/18 08:00 Resp 15 08/22/18 08:00 BP 122/93 H 08/22/18 08:00 Pulse Ox 94 L 08/22/18 08:00 Weight: 200 lb 14.4 oz
--- NOTE | 2018-08-22 08:55 | PCM.PN ---
- General Info Date of Service: 08/22/18 Admission Dx/Problem (Free Text): 88 yo WM with DM, dementia, pacemaker admitted with gangrenous right second toe , started 7 weeks ago, visited local water pumper, no abx prescribed. noted increased edema, erythema, was brought to ED. Surgery consulted, discussed. Admitted as IP for further treatment 08/22/2018, denies pain, otherwise unchanged, no major events o/n, CT confirmed edema, no osteo of metatarsals. - Patient Data Vitals - Most Recent: Last Vital Signs Temp 98.1 F 08/22/18 08:00 Pulse 72 08/22/18 08:00 Resp 15 08/22/18 08:00 BP 122/93 H 08/22/18 08:00 Pulse Ox 94 L 08/22/18 08:00 Weight - Most Recent: 200 lb 14.4 oz I&O - Last 24 Hours: Intake & Output 08/21/18 08/22/18 08/22/18 19:59 03:59 11:59 Intake Total 500 Output Total 400 Balance -400 500 Lab Results Last 24 Hours: Laboratory Results - last 24 hr 08/21/18 08/21/18 08/21/18 Range/Units 18:15 18:15 18:15 WBC 14.38 H (4.23-9.07) K/mm3 RBC 3.59 L (4.63-6.08) M/mm3 Hgb 10.3 L D (13.7-17.5) gm/L Hct 31.9 L (40.1-51.0) % MCV 88.9 (79.0-92.2) fl MCH 28.7 (25.7-32.2) pg MCHC 32.3 (32.2-35.5) g/dl RDW Std Deviation 46.7 H (35.1-43.9) fL Plt Count 340 H (163-337) K/mm3 MPV 10.0 (9.4-12.3) fl Neut % (Auto) (34.0-67.9) % Lymph % (Auto) (21.8-53.1) % [place] % (Auto) (5.3-12.2) % Eos % (Auto) (0.8-7.0) Baso % (Auto) (0.1-1.2) % Neut # (Auto) (1.78-5.38) K/mm3 Lymph # (Auto) (1.32-3.57) K/mm3 [place] # (Auto) (0.30-0.82) K/mm3 Eos # (Auto) (0.04-0.54) K/mm3 Baso # (Auto) (0.01-0.08) K/mm3 Neutrophils % (Manual) 86 H (40-60) % Band Neutrophils % 0 (0-10) % Lymphocytes % (Manual) 11 L (20-40) % Atypical Lymphs % 0 % Monocytes % (Manual) 3 (2-10) % Eosinophils % (Manual) 0 L (0.8-7.0) % Basophils % (Manual) 0 L (0.2-1.2) Platelet Estimate Adequate RBC Morph Comment Normal PT (9.5-12.1) SECONDS INR APTT (24-31) SECONDS Sodium 138 (136-145) mEq/L Potassium 3.5 (3.5-5.1) mEq/L Chloride 101 (98-107) mEq/L Carbon Dioxide 27 (21-32) mEq/L Anion Gap 13.5 (5-15) BUN 27 H (7-18) mg/dL Creatinine 1.5 H (0.7-1.3) mg/dL Est Cr Clr Drug Dosing 32.30 mL/min Estimated GFR (MDRD) 44 (>60) mL/min BUN/Creatinine Ratio 18.0 (14-18) Glucose 211 H (83-115) mg/dL POC Glucose (83-110) mg/dL Lactic Acid (0.4-2.0) mmol/L Calcium 8.6 (8.5-10.1) mg/dL Total Bilirubin 1.2 H (0.2-1.0) mg/dL AST 18 (15-37) U/L ALT 21 (16-63) U/L Alkaline Phosphatase 116 (46-116) U/L Troponin I (0.00-0.056) ng/mL NT-Pro-B Natriuret Pep 1384 H (0-450) pg/mL Total Protein 7.7 (6.4-8.2) g/dl Albumin 2.9 L (3.4-5.0) g/dl Globulin 4.8 gm/dL Albumin/Globulin Ratio 0.6 L (1-2) Urine Color (Yellow) Urine Appearance (Clear) Urine pH (5.0-8.0) Ur Specific [place] (1.005-1.030) Urine Protein (Negative) Urine Glucose (UA) (Negative) Urine Ketones (Negative) Urine Occult Blood (Negative) Urine Nitrite (Negative) Urine Bilirubin (Negative) Urine Urobilinogen (0.2-1.0) Ur Leukocyte Esterase (Negative) Urine RBC (0-5) /hpf Urine WBC (0-5) /hpf Ur Squamous Epith Cells (0-5) /hpf Urine Bacteria (FEW) /hpf Hyaline Casts (0-5) /lpf Urine Mucus (FEW) /hpf 08/21/18 08/21/18 08/21/18 Range/Units 18:15 18:33 21:05 WBC (4.23-9.07) K/mm3 RBC (4.63-6.08) M/mm3 Hgb (13.7-17.5) gm/L Hct (40.1-51.0) % MCV (79.0-92.2) fl MCH (25.7-32.2) pg MCHC (32.2-35.5) g/dl RDW Std Deviation (35.1-43.9) fL Plt Count (163-337) K/mm3 MPV (9.4-12.3) fl Neut % (Auto) (34.0-67.9) % Lymph % (Auto) (21.8-53.1) % [place] % (Auto) (5.3-12.2) % Eos % (Auto) (0.8-7.0) Baso % (Auto) (0.1-1.2) % Neut # (Auto) (1.78-5.38) K/mm3 Lymph # (Auto) (1.32-3.57) K/mm3 [place] # (Auto) (0.30-0.82) K/mm3 Eos # (Auto) (0.04-0.54) K/mm3 Baso # (Auto) (0.01-0.08) K/mm3 Neutrophils % (Manual) (40-60) % Band Neutrophils % (0-10) % Lymphocytes % (Manual) (20-40) % Atypical Lymphs % % Monocytes % (Manual) (2-10) % Eosinophils % (Manual) (0.8-7.0) % Basophils % (Manual) (0.2-1.2) Platelet Estimate RBC Morph Comment PT (9.5-12.1) SECONDS INR APTT (24-31) SECONDS Sodium (136-145) mEq/L Potassium (3.5-5.1) mEq/L Chloride (98-107) mEq/L Carbon Dioxide (21-32) mEq/L Anion Gap (5-15) BUN (7-18) mg/dL Creatinine (0.7-1.3) mg/dL Est Cr Clr Drug Dosing mL/min Estimated GFR (MDRD) (>60) mL/min BUN/Creatinine Ratio (14-18) Glucose (83-115) mg/dL POC Glucose 199 H (83-110) mg/dL Lactic Acid 2.2 H 1.5 (0.4-2.0) mmol/L Calcium (8.5-10.1) mg/dL Total Bilirubin (0.2-1.0) mg/dL AST (15-37) U/L ALT (16-63) U/L Alkaline Phosphatase (46-116) U/L Troponin I (0.00-0.056) ng/mL NT-Pro-B Natriuret Pep (0-450) pg/mL Total Protein (6.4-8.2) g/dl Albumin (3.4-5.0) g/dl Globulin gm/dL Albumin/Globulin Ratio (1-2) Urine Color (Yellow) Urine Appearance (Clear) Urine pH (5.0-8.0) Ur Specific [place] (1.005-1.030) Urine Protein (Negative) Urine Glucose (UA) (Negative) Urine Ketones (Negative) Urine Occult Blood (Negative) Urine Nitrite (Negative) Urine Bilirubin (Negative) Urine Urobilinogen (0.2-1.0) Ur Leukocyte Esterase (Negative) Urine RBC (0-5) /hpf Urine WBC (0-5) /hpf Ur Squamous Epith Cells (0-5) /hpf Urine Bacteria (FEW) /hpf Hyaline Casts (0-5) /lpf Urine Mucus (FEW) /hpf 08/21/18 08/21/18 08/22/18 Range/Units 21:09 22:35 06:11 WBC (4.23-9.07) K/mm3 RBC (4.63-6.08) M/mm3 Hgb (13.7-17.5) gm/L Hct (40.1-51.0) % MCV (79.0-92.2) fl MCH (25.7-32.2) pg MCHC (32.2-35.5) g/dl RDW Std Deviation (35.1-43.9) fL Plt Count (163-337) K/mm3 MPV (9.4-12.3) fl Neut % (Auto) (34.0-67.9) % Lymph % (Auto) (21.8-53.1) % [place] % (Auto) (5.3-12.2) % Eos % (Auto) (0.8-7.0) Baso % (Auto) (0.1-1.2) % Neut # (Auto) (1.78-5.38) K/mm3 Lymph # (Auto) (1.32-3.57) K/mm3 [place] # (Auto) (0.30-0.82) K/mm3 Eos # (Auto) (0.04-0.54) K/mm3 Baso # (Auto) (0.01-0.08) K/mm3 Neutrophils % (Manual) (40-60) % Band Neutrophils % (0-10) % Lymphocytes % (Manual) (20-40) % Atypical Lymphs % % Monocytes % (Manual) (2-10) % Eosinophils % (Manual) (0.8-7.0) % Basophils % (Manual) (0.2-1.2) Platelet Estimate RBC Morph Comment PT (9.5-12.1) SECONDS INR APTT (24-31) SECONDS Sodium (136-145) mEq/L Potassium (3.5-5.1) mEq/L Chloride (98-107) mEq/L Carbon Dioxide (21-32) mEq/L Anion Gap (5-15) BUN (7-18) mg/dL Creatinine (0.7-1.3) mg/dL Est Cr Clr Drug Dosing mL/min Estimated GFR (MDRD) (>60) mL/min BUN/Creatinine Ratio (14-18) Glucose (83-115) mg/dL POC Glucose 357 H 220 H (83-110) mg/dL Lactic Acid (0.4-2.0) mmol/L Calcium (8.5-10.1) mg/dL Total Bilirubin (0.2-1.0) mg/dL AST (15-37) U/L ALT (16-63) U/L Alkaline Phosphatase (46-116) U/L Troponin I (0.00-0.056) ng/mL NT-Pro-B Natriuret Pep (0-450) pg/mL Total Protein (6.4-8.2) g/dl Albumin (3.4-5.0) g/dl Globulin gm/dL Albumin/Globulin Ratio (1-2) Urine Color Yellow (Yellow) Urine Appearance Clear (Clear) Urine pH 6.0 (5.0-8.0) Ur Specific [place] 1.015 (1.005-1.030) Urine Protein 1+ H (Negative) Urine Glucose (UA) 1+ H (Negative) Urine Ketones Negative (Negative) Urine Occult Blood Negative (Negative) Urine Nitrite Negative (Negative) Urine Bilirubin Negative (Negative) Urine Urobilinogen 2.0 H (0.2-1.0) Ur Leukocyte Esterase Negative (Negative) Urine RBC Not seen (0-5) /hpf Urine WBC 0-5 (0-5) /hpf Ur Squamous Epith Cells 0-5 (0-5) /hpf Urine Bacteria Rare (FEW) /hpf Hyaline Casts 0-5 (0-5) /lpf Urine Mucus Not seen (FEW) /hpf 08/22/18 08/22/18 08/22/18 Range/Units 07:15 07:15 07:15 WBC 9.45 H (4.23-9.07) K/mm3 RBC 3.15 L (4.63-6.08) M/mm3 Hgb 9.0 L (13.7-17.5) gm/L Hct 28.2 L (40.1-51.0) % MCV 89.5 (79.0-92.2) fl MCH 28.6 (25.7-32.2) pg MCHC 31.9 L (32.2-35.5) g/dl RDW Std Deviation 46.3 H (35.1-43.9) fL Plt Count 304 (163-337) K/mm3 MPV 9.2 L (9.4-12.3) fl Neut % (Auto) 72.9 H (34.0-67.9) % Lymph % (Auto) 15.6 L (21.8-53.1) % [place] % (Auto) 8.9 (5.3-12.2) % Eos % (Auto) 2.2 (0.8-7.0) Baso % (Auto) 0.2 (0.1-1.2) % Neut # (Auto) 6.89 H (1.78-5.38) K/mm3 Lymph # (Auto) 1.47 (1.32-3.57) K/mm3 [place] # (Auto) 0.84 H (0.30-0.82) K/mm3 Eos # (Auto) 0.21 (0.04-0.54) K/mm3 Baso # (Auto) 0.02 (0.01-0.08) K/mm3 Neutrophils % (Manual) (40-60) % Band Neutrophils % (0-10) % Lymphocytes % (Manual) (20-40) % Atypical Lymphs % % Monocytes % (Manual) (2-10) % Eosinophils % (Manual) (0.8-7.0) % Basophils % (Manual) (0.2-1.2) Platelet Estimate RBC Morph Comment PT (9.5-12.1) SECONDS INR APTT (24-31) SECONDS Sodium 138 (136-145) mEq/L Potassium 3.3 L (3.5-5.1) mEq/L Chloride 104 (98-107) mEq/L Carbon Dioxide 25 (21-32) mEq/L Anion Gap 12.3 (5-15) BUN 26 H (7-18) mg/dL Creatinine 1.6 H (0.7-1.3) mg/dL Est Cr Clr Drug Dosing 30.28 mL/min Estimated GFR (MDRD) 41 (>60) mL/min BUN/Creatinine Ratio 16.3 (14-18) Glucose 223 H (83-115) mg/dL POC Glucose (83-110) mg/dL Lactic Acid 0.9 (0.4-2.0) mmol/L Calcium 7.9 L (8.5-10.1) mg/dL Total Bilirubin 0.9 (0.2-1.0) mg/dL AST 16 (15-37) U/L ALT 15 L (16-63) U/L Alkaline Phosphatase 94 (46-116) U/L Troponin I 0.028 (0.00-0.056) ng/mL NT-Pro-B Natriuret Pep (0-450) pg/mL Total Protein 6.6 (6.4-8.2) g/dl Albumin 2.4 L (3.4-5.0) g/dl Globulin 4.2 gm/dL Albumin/Globulin Ratio 0.6 L (1-2) Urine Color (Yellow) Urine Appearance (Clear) Urine pH (5.0-8.0) Ur Specific [place] (1.005-1.030) Urine Protein (Negative) Urine Glucose (UA) (Negative) Urine Ketones (Negative) Urine Occult Blood (Negative) Urine Nitrite (Negative) Urine Bilirubin (Negative) Urine Urobilinogen (0.2-1.0) Ur Leukocyte Esterase (Negative) Urine RBC (0-5) /hpf Urine WBC (0-5) /hpf Ur Squamous Epith Cells (0-5) /hpf Urine Bacteria (FEW) /hpf Hyaline Casts (0-5) /lpf Urine Mucus (FEW) /hpf 08/22/18 Range/Units 07:15 WBC (4.23-9.07) K/mm3 RBC (4.63-6.08) M/mm3 Hgb (13.7-17.5) gm/L Hct (40.1-51.0) % MCV (79.0-92.2) fl MCH (25.7-32.2) pg MCHC (32.2-35.5) g/dl RDW Std Deviation (35.1-43.9) fL Plt Count (163-337) K/mm3 MPV (9.4-12.3) fl Neut % (Auto) (34.0-67.9) % Lymph % (Auto) (21.8-53.1) % [place] % (Auto) (5.3-12.2) % Eos % (Auto) (0.8-7.0) Baso % (Auto) (0.1-1.2) % Neut # (Auto) (1.78-5.38) K/mm3 Lymph # (Auto) (1.32-3.57) K/mm3 [place] # (Auto) (0.30-0.82) K/mm3 Eos # (Auto) (0.04-0.54) K/mm3 Baso # (Auto) (0.01-0.08) K/mm3 Neutrophils % (Manual) (40-60) % Band Neutrophils % (0-10) % Lymphocytes % (Manual) (20-40) % Atypical Lymphs % % Monocytes % (Manual) (2-10) % Eosinophils % (Manual) (0.8-7.0) % Basophils % (Manual) (0.2-1.2) Platelet Estimate RBC Morph Comment PT 11.3 (9.5-12.1) SECONDS INR 1.04 APTT 27 (24-31) SECONDS Sodium (136-145) mEq/L Potassium (3.5-5.1) mEq/L Chloride (98-107) mEq/L Carbon Dioxide (21-32) mEq/L Anion Gap (5-15) BUN (7-18) mg/dL Creatinine (0.7-1.3) mg/dL Est Cr Clr Drug Dosing mL/min Estimated GFR (MDRD) (>60) mL/min BUN/Creatinine Ratio (14-18) Glucose (83-115) mg/dL POC Glucose (83-110) mg/dL Lactic Acid (0.4-2.0) mmol/L Calcium (8.5-10.1) mg/dL Total Bilirubin (0.2-1.0) mg/dL AST (15-37) U/L ALT (16-63) U/L Alkaline Phosphatase (46-116) U/L Troponin I (0.00-0.056) ng/mL NT-Pro-B Natriuret Pep (0-450) pg/mL Total Protein (6.4-8.2) g/dl Albumin (3.4-5.0) g/dl Globulin gm/dL Albumin/Globulin Ratio (1-2) Urine Color (Yellow) Urine Appearance (Clear) Urine pH (5.0-8.0) Ur Specific [place] (1.005-1.030) Urine Protein (Negative) Urine Glucose (UA) (Negative) Urine Ketones (Negative) Urine Occult Blood (Negative) Urine Nitrite (Negative) Urine Bilirubin (Negative) Urine Urobilinogen (0.2-1.0) Ur Leukocyte Esterase (Negative) Urine RBC (0-5) /hpf Urine WBC (0-5) /hpf Ur Squamous Epith Cells (0-5) /hpf Urine Bacteria (FEW) /hpf Hyaline Casts (0-5) /lpf Urine Mucus (FEW) /hpf Taye Results Last 24 Hours: Microbiology 08/21/18 18:15 Anaerobic Blood Culture - Final Blood Med Orders - Current: Current Medications Aspirin (Halfprin) 81 mg PO DAILY [facility] Carvedilol (Coreg) 12.5 mg PO BIDMEALS [facility] Last Admin: 08/22/18 06:22 Dose: 12.5 mg Docusate Sodium (Colace) 100 mg PO BID [facility] Last Admin: 08/21/18 21:43 Dose: 100 mg Finasteride (Proscar) 5 mg PO DAILY [facility] Heparin Sodium (Porcine) (Heparin Sodium) 5,000 units SUBCUT Q8H [facility] Last Admin: 08/22/18 05:03 Dose: 5,000 units Hydromorphone HCl (Dilaudid) 0.25 mg IVPUSH Q2H PRN PRN Reason: Pain (severe 7-10) Piperacillin Sod/Tazobactam (Sod 4.5 gm/ Sodium Chloride) 100 mls @ 25 mls/hr IV Q8H [facility] Last Admin: 08/22/18 01:31 Dose: 200 mls/hr Lactated Ringer's (Ringers, Lactated) 1,000 mls @ 100 mls/hr IV ASDIRECTED [facility] Last Admin: 08/22/18 05:53 Dose: 100 mls/hr Insulin Human Lispro (Humalog) 0 unit SUBCUT QIDACANDBED [facility]; Protocol Last Admin: 08/21/18 21:48 Dose: 5 units Ondansetron HCl (Zofran) 4 mg IV Q4H PRN PRN Reason: Nausea/Vomiting Simvastatin (Zocor) 10 mg PO BEDTIME [facility] Sodium Chloride (Saline Flush) 10 ml FLUSH ASDIRECTED PRN PRN Reason: Keep Vein Open Last Admin: 08/21/18 18:43 Dose: 10 ml Discontinued Medications Hydromorphone HCl (Dilaudid) 0.25 mg IVPUSH Q2H PRN PRN Reason: Pain (severe 7-10) Lidocaine HCl (Xylocaine-Mpf 1%) Confirm Administered Dose 2 mls @ as directed .ROUTE .STK-MED ONE Stop: 08/21/18 17:53 Last Admin: 08/21/18 17:58 Dose: Not Given Sodium Chloride (Normal Saline) 500 mls @ 999 mls/hr IV .BOLUS ONE Stop: 08/21/18 19:26 Last Admin: 08/21/18 19:18 Dose: 999 mls/hr Vancomycin HCl 1 gm/ Sodium (Chloride) 250 mls @ 250 mls/hr IV ONETIME ONE Stop: 08/21/18 20:34 Last Admin: 08/21/18 22:12 Dose: Not Given Vancomycin HCl 1 gm/Vancomycin HCl 500 mg/ Sodium Chloride 500 mls @ 333.025 mls/hr IV Q24H [facility] Last Admin: 08/21/18 21:44 Dose: 333.025 mls/hr Lidocaine HCl (Xylocaine-Mpf 1%) 2 ml .XX ONETIME ONE Stop: 08/21/18 17:57 Last Admin: 08/21/18 17:58 Dose: 2 ml Vancomycin HCl (Pharmacy To Dose - Vancomycin) 1 dose .XX ASDIRECTED [facility] - Exam Physical Findings Comments:: General: Alert, Oriented (self only), Cooperative HEENT: Conjunctiva Clear, EOMI Neck: Supple, Trachea Midline Lungs: Clear to Auscultation, Normal Respiratory Effort. No: Wheezing Cardiovascular: Regular Rate, Normal S1, Normal S2. No: Rubs GI/Abdominal Exam: Normal Bowel Sounds, Soft, Non-Tender Extremities: Other (right second toe gangrenous, erythema, edema mid metatarsal. ) Peripheral Pulses: 1+: Dorsalis Pedis (L), Dorsalis Pedis (R), 2+: Carotid (L), Carotid (R) Skin: Warm, Dry Neurological: Cranial Nerves Intact Neuro Extensive - Mental Status: Disorientation to Place Psychiatric: Normal Affect - Problem List & Annotations (1) Gangrenous toe SNOMED Code(s): 345024915 Code(s): I96 - GANGRENE, NOT ELSEWHERE CLASSIFIED Status: Acute Current Visit: Yes (2) Diabetes mellitus SNOMED Code(s): 58241772 Code(s): E11.9 - TYPE 2 DIABETES MELLITUS WITHOUT COMPLICATIONS Status: Acute Current Visit: Yes Qualifiers: Diabetes mellitus type: type 2 Diabetes mellitus shelter insulin use: with emt intermediate use Diabetes mellitus complication status: with circulatory complication Diabetes mellitus complication detail: with peripheral angiopathy with gangrene Qualified Code(s): E11.52 - Type 2 diabetes mellitus with diabetic peripheral angiopathy with gangrene; Z79.4 - [facility] (current) use of insulin - Problem List Review Problem List Initiated/Reviewed/Updated: Yes - My Orders Last 24 Hours: My Active Orders 08/21/18 19:40 Patient Status [ADT] Routine Vital Signs [RC] Q4HR 08/21/18 19:43 Bedrest Bedside Commode [RC] ASDIRECTED Blood Glucose Check, Bedside [RC] QIDACANDBED Height and Weight [RC] 04 Intake and Output [RC] 04,16 Oxygen Therapy [RC] PRN Ondansetron [Zofran] 4 mg IV Q4H PRN Resuscitation Status Routine 08/21/18 19:45 Lactated Ringers [Ringers, Lactated] 1,000 ml IV ASDIRECTED 08/21/18 20:00 Heparin Sodium 5,000 units SUBCUT Q8H 08/21/18 21:00 Docusate Sodium [Colace] 100 mg PO BID 08/21/18 22:00 Insulin Lispro [HumaLOG] See Protocol SUBCUT QIDACANDBED 08/21/18 23:00 Insert Win Catheter [Insert Urinary Catheter] [OM.PC] Q24H 08/22/18 05:11 EKG 12 Lead [EK] AM 08/22/18 07:00 Carvedilol [Coreg] 12.5 mg PO BIDMEALS 08/22/18 07:15 GLYCOSYLATED HEMOGLOBIN,HGBA1C [CHEM] AM PHOSPHORUS [CHEM] AM 08/22/18 07:25 HYDROmorphone [Dilaudid] 0.25 mg IVPUSH Q2H PRN 08/22/18 09:00 Aspirin [Halfprin] 81 mg PO DAILY Finasteride [Proscar] 5 mg PO DAILY 08/22/18 21:00 Simvastatin [Zocor] 10 mg PO BEDTIME - Plan Plan:: 1. Continue IV abx, pending BCx.Did not tolerate vancomycin, vein irritation vs. anaphylaxis, will hold. 2. IVF. Scr 1.6, at baseline. 3. Surgery consultation, obtained, discussed. 4. Foot CT, no osteomyelitis of metatarsals. 5. placement SNF after discharge. 6. SSI, A1C. 7. DNR/DNI
[2018-08-22 09:02] LABS: HEMOGLOBIN A1C 8.1 % (4.50-6.20)
[2018-08-22] MEDS ORDERED: Potassium Chloride 10% 20 MEQ/15 ML Soln 15 ML UD Cup PO ONE (09:07)
[2018-08-22] MEDS: Insulin Lispro 100 Units/ML 3 ML Vial SUBCUT SCH ×4 (09:38→21:27)
[2018-08-22] MEDS: Aspirin 81 MG Tab.EC PO SCH (09:41)
[2018-08-22] MEDS: Docusate Sodium 100 MG Cap PO SCH ×2 (09:41→21:04)
[2018-08-22] MEDS: Finasteride 5 MG Tab PO SCH (09:41)
[2018-08-22] MEDS ORDERED: Albumin 25% 50 ML ONE (09:46)
--- NOTE | 2018-08-22 12:02 | PCM.SN ---
- Free Text/Narrative Note: 1105 to room 9 to start IV multiple sticks #[id number] ga. left arm good flush good blood return out of room at 1201
[2018-08-22] MEDS: Simvastatin 10 MG Tab PO SCH (21:04)
[2018-08-22] MEDS: Saccharomyces Boulardii (Probiotic) 250 MG Cap PO SCH (21:04)
[2018-08-23] MEDS: Piperacillin/Tazobactam 4.5 GM in Sodium Chloride 0.9% 100 ML IV SCH ×3 (01:53→18:40)
[2018-08-23] MEDS: Heparin Sodium 5,000 Units/ML Vial SUBCUT SCH ×2 (04:35→20:54)
[2018-08-23] MEDS: Lactated Ringers 1,000 ML IV SCH ×2 (06:13→20:40)
[2018-08-23] MEDS: Carvedilol 12.5 MG Tab PO SCH ×2 (06:16→18:39)
[2018-08-23] MEDS: Insulin Lispro 100 Units/ML 3 ML Vial SUBCUT SCH ×5 (09:29→21:33)
[2018-08-23] MEDS: Finasteride 5 MG Tab PO SCH (09:29)
[2018-08-23] MEDS: Saccharomyces Boulardii (Probiotic) 250 MG Cap PO SCH ×2 (09:29→20:55)
[2018-08-23] MEDS: Docusate Sodium 100 MG Cap PO SCH ×2 (09:29→20:55)
[2018-08-23] MEDS: Aspirin 81 MG Tab.EC PO SCH (09:29)
--- NOTE | 2018-08-23 11:39 | PCM.PREANE ---
Preanesthetic Assessment - Procedure Proposed Procedure: amputation of right second toe Talked with who is poa- wants to continue dnr with surgery. Talked at length. - Anesthesia/Transfusion/Family Hx Anesthesia History: Prior Anesthesia Without Reaction Family History of Anesthesia Reaction: No Transfusion History: No Prior Transfusion(s) - Review of Systems General: No Symptoms Pulmonary: Shortness of Breath, Wheezing, Cough, Sputum Gastrointestinal: Diarrhea (occasionally) Neurological: Confusion, Difficulty Walking, Weakness, Other (alzheimers) Other: Reports: Diabetes - Physical Assessment NPO Status Date: 08/23/18 NPO Status Time: 08:00 Pulse: 83 O2 Sat by Pulse Oximetry: 90 Respiratory Rate: 22 Blood Pressure: 116/55 Temperature: 99.0 F Vital Signs: Last Vital Signs Temp 99.0 F 08/23/18 08:34 Pulse 83 08/23/18 08:34 Resp 22 H 08/23/18 08:34 BP 116/55 L 08/23/18 08:34 Pulse Ox 90 L 08/23/18 08:34 Height: 5 ft 8 in Weight: 93.468 kg ASA Class: 4E Mental Status: Alert & Oriented x3 Dentition: Reports: Edentulous (on top), Broken Tooth/Teeth Thyro-Mental Finger Breadths: 3 Mouth Opening Finger Breadths: 3 ROM/Head Extension: Limited/Partial Lungs: Clear to Auscultation, Normal Respiratory Effort Cardiovascular: Regular Rate, Regular Rhythm - Lab Values: Laboratory Last Values WBC 12.69 K/mm3 (4.23-9.07) H 08/23/18 10:40 RBC 3.49 M/mm3 (4.63-6.08) L 08/23/18 10:40 Hgb 10.0 gm/L (13.7-17.5) L 08/23/18 10:40 Hct 31.1 % (40.1-51.0) L 08/23/18 10:40 MCV 89.1 fl (79.0-92.2) 08/23/18 10:40 MCH 28.7 pg (25.7-32.2) 08/23/18 10:40 MCHC 32.2 g/dl (32.2-35.5) 08/23/18 10:40 RDW Std Deviation 47.0 fL (35.1-43.9) H 08/23/18 10:40 Plt Count 330 K/mm3 (163-337) 08/23/18 10:40 MPV 9.3 fl (9.4-12.3) L 08/23/18 10:40 Neut % (Auto) 82.3 % (34.0-67.9) H 08/23/18 10:40 Lymph % (Auto) 9.1 % (21.8-53.1) L 08/23/18 10:40 [place] % (Auto) 6.1 % (5.3-12.2) 08/23/18 10:40 Eos % (Auto) 2.0 (0.8-7.0) 08/23/18 10:40 Baso % (Auto) 0.2 % (0.1-1.2) 08/23/18 10:40 Neut # (Auto) 10.43 K/mm3 (1.78-5.38) H 08/23/18 10:40 Lymph # (Auto) 1.16 K/mm3 (1.32-3.57) L 08/23/18 10:40 [place] # (Auto) 0.77 K/mm3 (0.30-0.82) 08/23/18 10:40 Eos # (Auto) 0.26 K/mm3 (0.04-0.54) 08/23/18 10:40 Baso # (Auto) 0.03 K/mm3 (0.01-0.08) 08/23/18 10:40 Neutrophils % (Manual) 86 % (40-60) H 08/21/18 18:15 Band Neutrophils % 0 % (0-10) 08/21/18 18:15 Lymphocytes % (Manual) 11 % (20-40) L 08/21/18 18:15 Atypical Lymphs % 0 % 08/21/18 18:15 Monocytes % (Manual) 3 % (2-10) 08/21/18 18:15 Eosinophils % (Manual) 0 % (0.8-7.0) L 08/21/18 18:15 Basophils % (Manual) 0 (0.2-1.2) L 08/21/18 18:15 Manual Slide Review Abnormal smear 08/23/18 10:40 Platelet Estimate Adequate 08/21/18 18:15 RBC Morph Comment Normal 08/21/18 18:15 PT 11.3 SECONDS (9.5-12.1) 08/22/18 07:15 INR 1.04 08/22/18 07:15 APTT 27 SECONDS (24-31) 08/22/18 07:15 Sodium 138 mEq/L (136-145) 08/22/18 07:15 Potassium 3.3 mEq/L (3.5-5.1) L 08/22/18 07:15 Chloride 104 mEq/L (98-107) 08/22/18 07:15 Carbon Dioxide 25 mEq/L (21-32) 08/22/18 07:15 Anion Gap 12.3 (5-15) 08/22/18 07:15 BUN 26 mg/dL (7-18) H 08/22/18 07:15 Creatinine 1.6 mg/dL (0.7-1.3) H 08/22/18 07:15 Est Cr Clr Drug Dosing 30.28 mL/min 08/22/18 07:15 Estimated GFR (MDRD) 41 mL/min (>60) 08/22/18 07:15 BUN/Creatinine Ratio 16.3 (14-18) 08/22/18 07:15 Glucose 223 mg/dL (83-115) H 08/22/18 07:15 POC Glucose 335 mg/dL (83-110) H 08/23/18 11:02 Hemoglobin A1c 8.10 % (4.50-6.20) H 08/22/18 07:15 Lactic Acid 0.9 mmol/L (0.4-2.0) 08/22/18 07:15 Calcium 7.9 mg/dL (8.5-10.1) L 08/22/18 07:15 Phosphorus 3.1 mg/dL (2.6-4.7) 08/22/18 07:15 Total Bilirubin 0.9 mg/dL (0.2-1.0) 08/22/18 07:15 AST 16 U/L (15-37) 08/22/18 07:15 ALT 15 U/L (16-63) L 08/22/18 07:15 Alkaline Phosphatase 94 U/L (46-116) 08/22/18 07:15 Troponin I 0.028 ng/mL (0.00-0.056) 08/22/18 07:15 NT-Pro-B Natriuret Pep 1384 pg/mL (0-450) H 08/21/18 18:15 Total Protein 6.6 g/dl (6.4-8.2) 08/22/18 07:15 Albumin 2.4 g/dl (3.4-5.0) L 08/22/18 07:15 Globulin 4.2 gm/dL 08/22/18 07:15 Albumin/Globulin Ratio 0.6 (1-2) L 08/22/18 07:15 Urine Color Yellow (Yellow) 08/21/18 22:35 Urine Appearance Clear (Clear) 08/21/18 22:35 Urine pH 6.0 (5.0-8.0) 08/21/18 22:35 Ur Specific [place] 1.015 (1.005-1.030) 08/21/18 22:35 Urine Protein 1+ (Negative) H 08/21/18 22:35 Urine Glucose (UA) 1+ (Negative) H 08/21/18 22:35 Urine Ketones Negative (Negative) 08/21/18 22:35 Urine Occult Blood Negative (Negative) 08/21/18 22:35 Urine Nitrite Negative (Negative) 08/21/18 22:35 Urine Bilirubin Negative (Negative) 08/21/18 22:35 Urine Urobilinogen 2.0 (0.2-1.0) H 08/21/18 22:35 Ur Leukocyte Esterase Negative (Negative) 08/21/18 22:35 Urine RBC Not seen /hpf (0-5) 08/21/18 22:35 Urine WBC 0-5 /hpf (0-5) 08/21/18 22:35 Ur Squamous Epith Cells 0-5 /hpf (0-5) 08/21/18 22:35 Urine Bacteria Rare /hpf (FEW) 08/21/18 22:35 Hyaline Casts 0-5 /lpf (0-5) 08/21/18 22:35 Urine Mucus Not seen /hpf (FEW) 08/21/18 22:35 - Allergies Allergies/Adverse Reactions: Allergies Allergy/AdvReac Type Severity Reaction Status Date / Time hydrocodone bitartrate Allergy Mild Hives Verified 08/22/18 07:58 [From [facility]] Sulfa (Sulfonamide Allergy Mild Hives Verified 08/22/18 07:58 Antibiotics) vancomycin Allergy Mild Itching Verified 08/22/18 07:58 acetaminophen [From [facility]] Allergy Unknown Hives Verified 08/21/18 16:44 donepezil [Donepezil] AdvReac Unknown Diarrhea Verified 08/22/18 07:58 quetiapine AdvReac Unknown Agitation Verified 08/22/18 07:58 - Blood Blood Available: No - Anesthesia Plan Beta Alana: Carvedilol Med Last Dose Date: 08/23/18 Med Last Dose Time: 06:00 - Acknowledgements Anesthesia Type Planned: MAC Pt an Appropriate Candidate for the Planned Anesthesia: Yes Alternatives and Risks of Anesthesia Discussed w Pt/Guardian: Yes Pt/Guardian Understands and Agrees with Anesthesia Plan: Yes PreAnesthesia Questionnaire HEENT History: Reports: Impaired Vision, Other (See Below) Other HEENT History: lens implanted; wears glasses Cardiovascular History: Reports: Hypertension, Pacemaker Respiratory History: Reports: Pneumonia, Recurrent Gastrointestinal History: Reports: Cholelithiasis Genitourinary History: Reports: Prostate Disorder Neurological History: Reports: Alzheimers Disease Psychiatric History: Reports: Dementia Endocrine/Metabolic History: Reports: Diabetes, Type II Oncologic (Cancer) History: Reports: Prostate Dermatologic History: Reports: Cellulitis, Other (See Below) Other Dermatologic History: blacked 2nd toe to right foot - Past Surgical History HEENT Surgical History: Reports: Eye Surgery Cardiovascular Surgical History: Reports: Pacer GI Surgical History: Reports: Cholecystectomy Musculoskeletal Surgical History: Reports: Hip Replacement, Knee Replacement - SUBSTANCE USE Smoking Status *Q: Former Smoker (quit) Tobacco Use Within Last Twelve Months: No Second Hand Smoke Exposure: No Days Per Week of Alcohol Use: 0 Recreational Drug Use History: No - HOME MEDS Home Medications: Home Meds Aspirin [Adult Low Dose Aspirin EC] 81 mg PO DAILY 12/10/13 [History] Dutasteride [Avodart] 0.5 mg PO DAILY 12/10/13 [History] Furosemide [Lasix] 40 mg PO DAILY 12/10/13 [History] Insulin Aspart [Novolog Flexpen] 0 unit SUBCUT ACDIN 12/10/13 [History] Insulin Aspart [Novolog Flexpen] 12 unit SQ [id number] 12/10/13 [History] Insulin Glarg,Human.Rec.Analog [Lantus Solostar] 20 unit SQ BID 12/10/13 [ History] Isosorbide Mononitrate [Imdur] 60 mg PO DAILY 12/10/13 [History] Nebivolol [Bystolic] 20 mg PO DAILY 12/10/13 [History] atorvaSTATin [Lipitor] 10 mg PO DAILY 12/10/13 [History] Nitroglycerin 0.4 mg SL ONCALL PRN #30 12/15/13 [Rx] - CURRENT (IN HOUSE) MEDS Current Meds: Current Medications Aspirin (Halfprin) 81 mg PO DAILY [facility] Last Admin: 08/23/18 09:29 Dose: 81 mg Carvedilol (Coreg) 12.5 mg PO BIDMEALS [facility] Last Admin: 08/23/18 06:16 Dose: 12.5 mg Docusate Sodium (Colace) 100 mg PO BID [facility] Last Admin: 08/23/18 09:29 Dose: 100 mg Finasteride (Proscar) 5 mg PO DAILY [facility] Last Admin: 08/23/18 09:29 Dose: 5 mg Heparin Sodium (Porcine) (Heparin Sodium) 5,000 units SUBCUT Q8H [facility] Stop: 08/23/18 20:01 Hydromorphone HCl (Dilaudid) 0.25 mg IVPUSH Q2H PRN PRN Reason: Pain (severe 7-10) Piperacillin Sod/Tazobactam (Sod 4.5 gm/ Sodium Chloride) 100 mls @ 25 mls/hr IV Q8H [facility] Last Admin: 08/23/18 09:31 Dose: 200 mls/hr Lactated Ringer's (Ringers, Lactated) 1,000 mls @ 100 mls/hr IV ASDIRECTED [facility] Last Admin: 08/23/18 06:13 Dose: 100 mls/hr Insulin Human Lispro (Humalog) 0 unit SUBCUT QIDACANDBED [facility]; Protocol Last Admin: 08/23/18 09:29 Dose: 6 units Ondansetron HCl (Zofran) 4 mg IV Q4H PRN PRN Reason: Nausea/Vomiting Saccharomyces Boulardii (Florastor) 250 mg PO BID [facility] Last Admin: 08/23/18 09:29 Dose: 250 mg Simvastatin (Zocor) 10 mg PO BEDTIME [facility] Last Admin: 08/22/18 21:04 Dose: 10 mg Sodium Chloride (Saline Flush) 10 ml FLUSH ASDIRECTED PRN PRN Reason: Keep Vein Open Last Admin: 08/21/18 18:43 Dose: 10 ml Discontinued Medications Heparin Sodium (Porcine) (Heparin Sodium) 5,000 units SUBCUT Q8H [facility] Last Admin: 08/23/18 04:35 Dose: 5,000 units Hydromorphone HCl (Dilaudid) 0.25 mg IVPUSH Q2H PRN PRN Reason: Pain (severe 7-10) Lidocaine HCl (Xylocaine-Mpf 1%) Confirm Administered Dose 2 mls @ as directed .ROUTE .STK-MED ONE Stop: 08/21/18 17:53 Last Admin: 08/21/18 17:58 Dose: Not Given Sodium Chloride (Normal Saline) 500 mls @ 999 mls/hr IV .BOLUS ONE Stop: 08/21/18 19:26 Last Admin: 08/21/18 19:18 Dose: 999 mls/hr Vancomycin HCl 1 gm/ Sodium (Chloride) 250 mls @ 250 mls/hr IV ONETIME ONE Stop: 08/21/18 20:34 Last Admin: 08/21/18 22:12 Dose: Not Given Vancomycin HCl 1 gm/Vancomycin HCl 500 mg/ Sodium Chloride 500 mls @ 333.025 mls/hr IV Q24H [facility] Last Admin: 08/21/18 21:44 Dose: 333.025 mls/hr Albumin Human (Flexbumin 25%) 25 gm in 100 mls @ 100 mls/hr IV ONETIME ONE Stop: 08/22/18 10:02 Last Admin: 08/22/18 09:36 Dose: 100 mls/hr Albumin Human (Flexbumin 25%) Confirm Administered Dose 50 mls @ as directed .ROUTE .STK-MED ONE Stop: 08/22/18 09:47 Last Admin: 08/22/18 10:17 Dose: 100 mls/hr Lidocaine HCl (Xylocaine-Mpf 1%) 2 ml .XX ONETIME ONE Stop: 08/21/18 17:57 Last Admin: 08/21/18 17:58 Dose: 2 ml Potassium Chloride (Potassium Chloride Solution) 40 meq PO ONETIME ONE Stop: 08/22/18 09:08 Last Admin: 08/22/18 09:47 Dose: 40 meq Vancomycin HCl (Pharmacy To Dose - Vancomycin) 1 dose .XX ASDIRECTED [facility]
[2018-08-23] MEDS ORDERED: Heparin Sodium 5,000 Units/ML Vial SUBCUT SCH (12:00)
--- NOTE | 2018-08-23 12:34 | PCM.SN ---
- Free Text/Narrative Note: 08/23/18 [id number] IV started 20 guage right antecubital times 1 attempt. Secured with tape and kerlix. [facility]
[2018-08-23] MEDS ORDERED: Lidocaine 1% 30 ML SDV ONE (12:55)
[2018-08-23] MEDS ORDERED: Bupivacaine 0.5% 10 ML SDV ONE (12:55)
[2018-08-23] MEDS ORDERED: Lactated Ringers 1,000 ML ONE (12:56)
[2018-08-23] MEDS ORDERED: Metoclopramide 10 MG/2 ML SDV ONE (12:57)
[2018-08-23] MEDS ORDERED: Ketamine 500 mg/10 ML MDV ONE (13:15)
[2018-08-23] MEDS ORDERED: Midazolam 1 MG/ML 2 ML SDV ONE (13:16)
[2018-08-23] MEDS ORDERED: Bupivacaine 0.5% 30 ML SDV ONE (14:39)
--- NOTE | 2018-08-23 15:02 | PCM.POSTAN ---
POST ANESTHESIA ASSESSMENT - MENTAL STATUS Mental Status: Somnolent, Disoriented - VITAL SIGNS Pulse Rate: 85 SaO2: 96 Resp Rate: 20 Blood Pressure: 112/78 Temperature: 98.2 F - RESPIRATORY Respiratory Status: Respiratory Rate WNL, Airway Patent, O2 Saturation Stable, Supplemental Oxygen - CARDIOVASCULAR CV Status: Pulse Rate WNL, Blood Pressure Stable - GASTROINTESTINAL GI Status: No Symptoms - PAIN Pain Score: 0 (rests- laying on side.) - POST OP HYDRATION Hydration Status: Adequate & Stable
--- NOTE | 2018-08-23 15:25 | PCM48HPAN ---
Post Anesthesia Note - EVALUATION WITHIN 48HRS OF ANESTHETIC Vital Signs in Normal Range: Yes Patient Participated in Evaluation: Yes Respiratory Function Stable: Yes Airway Patent: Yes Cardiovascular Function Stable: Yes Hydration Status Stable: Yes Pain Control Satisfactory: Yes Nausea and Vomiting Control Satisfactory: Yes Mental Status Recovered: Yes (as preop- still confused.) Pulse Rate: 85 Resp Rate: 20 Temperature: 98.2 F Blood Pressure: 112/78
--- NOTE | 2018-08-23 16:25 | PCM.PN ---
- General Info Date of Service: 08/23/18 Admission Dx/Problem (Free Text): 88 yo WM with DM, dementia, pacemaker admitted with gangrenous right second toe , started 7 weeks ago, visited local warning analyst, no abx prescribed. noted increased edema, erythema, was brought to ED. Surgery consulted, discussed. Admitted as IP for further treatment 08/22/2018, denies pain, otherwise unchanged, no major events o/n, CT confirmed edema, no osteo of metatarsals. 08/23/18, no new events, scheduled for toe amputation - Patient Data Vitals - Most Recent: Last Vital Signs Temp 98.2 F 08/23/18 15:25 Pulse 77 08/23/18 15:33 Resp 20 08/23/18 15:25 BP 128/58 L 08/23/18 16:00 Pulse Ox 82 L 08/23/18 15:33 Weight - Most Recent: 206 lb 1 oz I&O - Last 24 Hours: Intake & Output 08/23/18 08/23/18 08/23/18 03:59 11:59 19:59 Intake Total 1160 100 Balance 1160 100 Lab Results Last 24 Hours: Laboratory Results - last 24 hr 08/22/18 08/22/18 08/23/18 Range/Units 17:55 21:12 06:19 WBC (4.23-9.07) K/mm3 RBC (4.63-6.08) M/mm3 Hgb (13.7-17.5) gm/L Hct (40.1-51.0) % MCV (79.0-92.2) fl MCH (25.7-32.2) pg MCHC (32.2-35.5) g/dl RDW Std Deviation (35.1-43.9) fL Plt Count (163-337) K/mm3 MPV (9.4-12.3) fl Neut % (Auto) (34.0-67.9) % Lymph % (Auto) (21.8-53.1) % [place] % (Auto) (5.3-12.2) % Eos % (Auto) (0.8-7.0) Baso % (Auto) (0.1-1.2) % Neut # (Auto) (1.78-5.38) K/mm3 Lymph # (Auto) (1.32-3.57) K/mm3 [place] # (Auto) (0.30-0.82) K/mm3 Eos # (Auto) (0.04-0.54) K/mm3 Baso # (Auto) (0.01-0.08) K/mm3 Manual Slide Review Sodium (136-145) mEq/L Potassium (3.5-5.1) mEq/L Chloride (98-107) mEq/L Carbon Dioxide (21-32) mEq/L Anion Gap (5-15) BUN (7-18) mg/dL Creatinine (0.7-1.3) mg/dL Est Cr Clr Drug Dosing mL/min Estimated GFR (MDRD) (>60) mL/min BUN/Creatinine Ratio (14-18) Glucose (83-115) mg/dL POC Glucose 259 H 266 H 225 H (83-110) mg/dL Hemoglobin A1c (4.50-6.20) % Calcium (8.5-10.1) mg/dL Phosphorus (2.6-4.7) mg/dL Magnesium (1.8-2.4) mg/dl Creatine Kinase (39-308) U/L TSH 3rd Generation (0.358-3.74) uIU/mL 08/23/18 08/23/18 08/23/18 Range/Units 10:40 10:40 10:40 WBC 12.69 H (4.23-9.07) K/mm3 RBC 3.49 L (4.63-6.08) M/mm3 Hgb 10.0 L (13.7-17.5) gm/L Hct 31.1 L (40.1-51.0) % MCV 89.1 (79.0-92.2) fl MCH 28.7 (25.7-32.2) pg MCHC 32.2 (32.2-35.5) g/dl RDW Std Deviation 47.0 H (35.1-43.9) fL Plt Count 330 (163-337) K/mm3 MPV 9.3 L (9.4-12.3) fl Neut % (Auto) 82.3 H (34.0-67.9) % Lymph % (Auto) 9.1 L (21.8-53.1) % [place] % (Auto) 6.1 (5.3-12.2) % Eos % (Auto) 2.0 (0.8-7.0) Baso % (Auto) 0.2 (0.1-1.2) % Neut # (Auto) 10.43 H (1.78-5.38) K/mm3 Lymph # (Auto) 1.16 L (1.32-3.57) K/mm3 [place] # (Auto) 0.77 (0.30-0.82) K/mm3 Eos # (Auto) 0.26 (0.04-0.54) K/mm3 Baso # (Auto) 0.03 (0.01-0.08) K/mm3 Manual Slide Review Abnormal smear Sodium 135 L (136-145) mEq/L Potassium 3.7 (3.5-5.1) mEq/L Chloride 100 (98-107) mEq/L Carbon Dioxide 21 (21-32) mEq/L Anion Gap 17.7 H (5-15) BUN 27 H (7-18) mg/dL Creatinine 1.7 H (0.7-1.3) mg/dL Est Cr Clr Drug Dosing 28.50 mL/min Estimated GFR (MDRD) 38 (>60) mL/min BUN/Creatinine Ratio 15.9 (14-18) Glucose 328 H (83-115) mg/dL POC Glucose (83-110) mg/dL Hemoglobin A1c (4.50-6.20) % Calcium 8.5 (8.5-10.1) mg/dL Phosphorus 2.4 L (2.6-4.7) mg/dL Magnesium 1.9 (1.8-2.4) mg/dl Creatine Kinase 68 (39-308) U/L TSH 3rd Generation 0.717 (0.358-3.74) uIU/mL 08/23/18 08/23/18 08/23/18 Range/Units 10:40 11:02 15:08 WBC (4.23-9.07) K/mm3 RBC (4.63-6.08) M/mm3 Hgb (13.7-17.5) gm/L Hct (40.1-51.0) % MCV (79.0-92.2) fl MCH (25.7-32.2) pg MCHC (32.2-35.5) g/dl RDW Std Deviation (35.1-43.9) fL Plt Count (163-337) K/mm3 MPV (9.4-12.3) fl Neut % (Auto) (34.0-67.9) % Lymph % (Auto) (21.8-53.1) % [place] % (Auto) (5.3-12.2) % Eos % (Auto) (0.8-7.0) Baso % (Auto) (0.1-1.2) % Neut # (Auto) (1.78-5.38) K/mm3 Lymph # (Auto) (1.32-3.57) K/mm3 [place] # (Auto) (0.30-0.82) K/mm3 Eos # (Auto) (0.04-0.54) K/mm3 Baso # (Auto) (0.01-0.08) K/mm3 Manual Slide Review Sodium (136-145) mEq/L Potassium (3.5-5.1) mEq/L Chloride (98-107) mEq/L Carbon Dioxide (21-32) mEq/L Anion Gap (5-15) BUN (7-18) mg/dL Creatinine (0.7-1.3) mg/dL Est Cr Clr Drug Dosing mL/min Estimated GFR (MDRD) (>60) mL/min BUN/Creatinine Ratio (14-18) Glucose (83-115) mg/dL POC Glucose 335 H 176 H (83-110) mg/dL Hemoglobin A1c 8.00 H (4.50-6.20) % Calcium (8.5-10.1) mg/dL Phosphorus (2.6-4.7) mg/dL Magnesium (1.8-2.4) mg/dl Creatine Kinase (39-308) U/L TSH 3rd Generation (0.358-3.74) uIU/mL [place] Results Last 24 Hours: Microbiology 08/21/18 18:15 Aerobic Blood Culture - Preliminary Blood NO GROWTH AFTER 1 DAY Anaerobic Blood Culture - Final Med Orders - Current: Current Medications Aspirin (Halfprin) 81 mg PO DAILY [facility] Last Admin: 08/23/18 09:29 Dose: 81 mg Carvedilol (Coreg) 12.5 mg PO BIDMEALS [facility] Last Admin: 05/03/19 06:16 Dose: 12.5 mg Docusate Sodium (Colace) 100 mg PO BID [facility] Last Admin: 08/23/18 09:29 Dose: 100 mg Finasteride (Proscar) 5 mg PO DAILY [facility] Last Admin: 08/23/18 09:29 Dose: 5 mg Heparin Sodium (Porcine) (Heparin Sodium) 5,000 units SUBCUT Q8H [facility] Hydromorphone HCl (Dilaudid) 0.25 mg IVPUSH Q2H PRN PRN Reason: Pain (severe 7-10) Piperacillin Sod/Tazobactam (Sod 4.5 gm/ Sodium Chloride) 100 mls @ 25 mls/hr IV Q8H [facility] Last Admin: 08/23/18 09:31 Dose: 200 mls/hr Lactated Ringer's (Ringers, Lactated) 1,000 mls @ 100 mls/hr IV ASDIRECTED [facility] Last Admin: 08/23/18 06:13 Dose: 100 mls/hr Insulin Human Lispro (Humalog) 0 unit SUBCUT QIDACANDBED [facility]; Protocol Last Admin: 08/23/18 11:54 Dose: 8 units Ondansetron HCl (Zofran) 4 mg IV Q4H PRN PRN Reason: Nausea/Vomiting Saccharomyces Boulardii (Florastor) 250 mg PO BID [facility] Last Admin: 08/23/18 09:29 Dose: 250 mg Simvastatin (Zocor) 10 mg PO BEDTIME [facility] Last Admin: 08/22/18 21:04 Dose: 10 mg Sodium Chloride (Saline Flush) 10 ml FLUSH ASDIRECTED PRN PRN Reason: Keep Vein Open Last Admin: 08/21/18 18:43 Dose: 10 ml Discontinued Medications Bupivacaine HCl (Sensorcaine-Mpf 0.5%) Confirm Administered Dose 10 ml .ROUTE .STK-MED ONE Stop: 08/23/18 12:56 Bupivacaine HCl (Marcaine 0.5%) Confirm Administered Dose 30 ml .ROUTE .STK-MED ONE Stop: 08/23/18 14:40 Heparin Sodium (Porcine) (Heparin Sodium) 5,000 units SUBCUT Q8H [facility] Last Admin: 08/23/18 04:35 Dose: 5,000 units Heparin Sodium (Porcine) (Heparin Sodium) 5,000 units SUBCUT Q8H [facility] Stop: 08/23/18 20:01 Last Admin: 08/23/18 11:34 Dose: Not Given Hydromorphone HCl (Dilaudid) 0.25 mg IVPUSH Q2H PRN PRN Reason: Pain (severe 7-10) Lidocaine HCl (Xylocaine-Mpf 1%) Confirm Administered Dose 2 mls @ as directed .ROUTE .STK-MED ONE Stop: 08/21/18 17:53 Last Admin: 08/21/18 17:58 Dose: Not Given Sodium Chloride (Normal Saline) 500 mls @ 999 mls/hr IV .BOLUS ONE Stop: 08/21/18 19:26 Last Admin: 08/21/18 19:18 Dose: 999 mls/hr Vancomycin HCl 1 gm/ Sodium (Chloride) 250 mls @ 250 mls/hr IV ONETIME ONE Stop: 08/21/18 20:34 Last Admin: 08/21/18 22:12 Dose: Not Given Vancomycin HCl 1 gm/Vancomycin HCl 500 mg/ Sodium Chloride 500 mls @ 333.025 mls/hr IV Q24H [facility] Last Admin: 08/21/18 21:44 Dose: 333.025 mls/hr Albumin Human (Flexbumin 25%) 25 gm in 100 mls @ 100 mls/hr IV ONETIME ONE Stop: 08/22/18 10:02 Last Admin: 08/22/18 09:36 Dose: 100 mls/hr Albumin Human (Flexbumin 25%) Confirm Administered Dose 50 mls @ as directed .ROUTE .STK-MED ONE Stop: 08/22/18 09:47 Last Admin: 08/22/18 10:17 Dose: 100 mls/hr Lactated Ringer's (Ringers, Lactated) Confirm Administered Dose 1,000 mls @ as directed .ROUTE .STK-MED ONE Stop: 08/23/18 12:57 Ketamine HCl (Ketalar) Confirm Administered Dose 500 mg .ROUTE .STK-MED ONE Stop: 08/23/18 13:16 Lidocaine HCl (Xylocaine-Mpf 1%) 2 ml .XX ONETIME ONE Stop: 08/21/18 17:57 Last Admin: 08/21/18 17:58 Dose: 2 ml Lidocaine HCl (Xylocaine-Mpf 1%) Confirm Administered Dose 30 ml .ROUTE .STK- MED ONE Stop: 08/23/18 12:56 Metoclopramide HCl (Reglan) Confirm Administered Dose 10 mg .ROUTE .STK-MED ONE Stop: 08/23/18 12:58 Midazolam HCl (Versed 1 Mg/Ml) Confirm Administered Dose 2 mg .ROUTE .STK-MED ONE Stop: 08/23/18 13:17 Potassium Chloride (Potassium Chloride Solution) 40 meq PO ONETIME ONE Stop: 08/22/18 09:08 Last Admin: 08/22/18 09:47 Dose: 40 meq Vancomycin HCl (Pharmacy To Dose - Vancomycin) 1 dose .XX ASDIRECTED PARUL - Exam Physical Findings Comments:: General: Alert, Oriented (self only), Cooperative HEENT: Conjunctiva Clear, EOMI Neck: Supple, Trachea Midline Lungs: Clear to Auscultation, Normal Respiratory Effort. No: Wheezing Cardiovascular: Regular Rate, Normal S1, Normal S2. No: Rubs GI/Abdominal Exam: Normal Bowel Sounds, Soft, Non-Tender Extremities: Other (right second toe gangrenous, erythema, edema mid metatarsal. ) post amputation and debridement. 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 Diabetes mellitus complication status: with circulatory complication Diabetes mellitus complication detail: with peripheral angiopathy with gangrene Qualified Code(s): E11.52 - Type 2 diabetes mellitus with diabetic peripheral angiopathy with gangrene; 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 Continue IV abx, pending BCx.Did not tolerate vancomycin, vein irritation vs. anaphylaxis, will hold. 2. IVF. Scr 1.6, at baseline. 3. Surgery consultation, obtained, discussed. Underwent toe amputation 08/23/18. 4. Foot CT, no osteomyelitis of metatarsals. 5. placement SNF after discharge. 6. SSI, A1C. 7. DNR/DNI
--- NOTE | 2018-08-23 17:40 | CONS ---
CONSULTING PHYSICIAN: Ceasar Morocho MD DATE OF CONSULTATION: 08/23/2018 REASON FOR CONSULTATION: Gangrene of the right second toe. HISTORY OF PRESENT ILLNESS: Mr. Shoemaker is an 88-year-old demented patient with peripheral arterial disease. Unfortunately, he was unable to give a history. Much of the history is obtained from medical record. Seven weeks ago, his caregiver, his noticed some increasing redness on the right foot, and previously treated for dry gangrene of the right second toe by a ski maker wood in the community. He said he has been on no antibiotics. The patient's brought him to the emergency department on August 21, where he was examined. Surgical consult was obtained. Suggestion was made to transfer that noticed to forthcoming. The patient was admitted and placed on antibiotics. He had a CT scan of the foot which demonstrated air and soft tissue edema of the gangrenous right second toe with clear evidence of osteomyelitis. In the hospital, his condition is not improved on antibiotics. I was asked to evaluate the patient this morning. His is unfortunately not at the bedside currently, but I did speak to her on the phone who gave some additional history. PAST MEDICAL HISTORY: Type 2 diabetes insulin dependent, history of prostate cancer, hypertension, pacemaker placement, cataract surgery, pneumonia, cholelithiasis, Alzheimer's. PAST SURGICAL HISTORY: Cataract surgery and cholecystectomy. ALLERGIES: To medications, hydrocodone, sulfa medications, acetaminophen, donepezil, quetiapine. MEDICATIONS: At home, the patient is on aspirin, Avodart, Lasix, NovoLog, Lantus, Imdur, Bystolic, Lipitor, and nitroglycerin p.r.n. REVIEW OF SYSTEMS: Impossible to obtain. He specifically denies pain in the extremities currently. By the chart, he is a former smoker. He smoked for 50 years. PHYSICAL EXAMINATION: GENERAL: He appears alert. He is responsive and quite cooperative but is clearly a very poor historian. He does not appear toxic. VITAL SIGNS: Temperature 99.0, pulse 83, respirations 22, blood pressure 116/55, saturating 98% on room air. HEAD AND NECK: Normocephalic, atraumatic. Neck is supple. Full range of motion. No carotid bruits. CHEST: Clear to auscultation bilaterally. ABDOMEN: Soft. No pulsatile masses. HEART: Regular rate and rhythm. No clicks, murmurs, or rubs. EXTREMITIES: I cannot appreciate pulses from the femoral, popliteal, anterior tibial, posterior tibial of either extremity. He has cellulitis and edema of the right foot just proximal to the right second toe. I also note arterial ulcers on the left second toe and medial aspect of the metatarsal head of the first digit on the left toe. He has dry gangrene with a foul smell emanating from the second toe on the right foot. I have reviewed the CT scan. He clearly has osteomyelitis of the right second toe with air tracking along the second digit consistent with gangrene of the right second toe. 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 PLAN: Prepare for amputation of that toe under monitored anesthesia tomorrow morning. I do not think he will tolerate a local procedure. He just simply would not understand as the event progresses. The wound will be left open. I have spoken to his at length on the phone. I did explain that he will likely need further surgery as his disease progresses and that the wound will likely never heal. He is not a candidate for revascularization. She expressed understanding. The risks, benefits, and alternatives were discussed in great detail. She gave informed consent for right second toe amputation. All of her questions were answered. PAOLA /[id number]
[2018-08-23] MEDS: Simvastatin 10 MG Tab PO SCH (20:55)
--- NOTE | 2018-08-23 23:13 | OR ---
DATE OF OPERATION: 08/23/2018 SURGEON: Ceasar Morocho MD PREOPERATIVE DIAGNOSIS: 1. Wet gangrene of the right second toe. 2. Osteomyelitis of the right second toe. POSTOPERATIVE DIAGNOSIS: 1. Wet gangrene of the right second toe. 2. Osteomyelitis of the right second toe. OPERATION PERFORMED: Amputation of the right second toe. ANESTHESIA: Ankle block and procedural sedation. ESTIMATED BLOOD LOSS: Less than 1 mL. COMPLICATIONS: None. PATHOLOGY: Right second toe. FINDINGS: He has a boggy gangrenous right second toe with crepitance consistent with wet gangrene. DISPOSITION: Stable at the end of the procedure. INDICATION: The patient is an 88-year-old male, admitted for gangrenous right second toe. On the first, he was placed on antibiotics. Initial consultation was performed by Dr. Cortes, the general surgeon conditioner tender. He felt that the patient was too ill to have an operation at the time of his evaluation. I was re-consulted today hearing about the patient for the first time this morning by Dr. Puckett. I came and evaluated the patient and it was clear from my examination that the toe needed to be removed. I had a lengthy discussion with his as well as the patient, though his dementia prevents a meaningful conversation. We thoroughly discussed the risks, benefits, and alternatives. These are detailed in my previous consultation. She gave informed consent for what was done. DESCRIPTION OF PROCEDURE: The patient was brought to the operating room and placed in the supine position on the stretcher. We did not move into the operating table. An ankle block was performed by Anesthesia. The right foot was prepped and draped in the usual sterile fashion. The sidedness and correct toe were identified preoperatively. I infused the skin and subcutaneous tissue performing a ring block at the root of the second toe. I used approximately 10 mL of 0.5% Marcaine without epinephrine. An elliptical incision was made surrounding skin and carried down to the root of the second toe. I identified the joint capsule at the tarsometatarsal communication. The joint was opened and then circumferentially the toe was removed from its attachment. Bovie cautery was used to stop minimal bleeding along the skin. There was no bleeding in the deep tissue. A thorough irrigation was performed. I then packed the wound, having assured myself of meticulous hemostasis. A Kerlix roll soaked in normal saline was placed in the open wound and then a sterile dressing was applied. He had no complications, minimal blood loss. He was moved to recovery in stable condition. PAOLA /[id number]
[2018-08-24] MEDS: Piperacillin/Tazobactam 4.5 GM in Sodium Chloride 0.9% 100 ML IV SCH ×3 (01:42→17:52)
[2018-08-24] MEDS: Heparin Sodium 5,000 Units/ML Vial SUBCUT SCH ×3 (04:30→21:30)
[2018-08-24] MEDS: Carvedilol 12.5 MG Tab PO SCH ×2 (06:11→18:07)
[2018-08-24] MEDS: Lactated Ringers 1,000 ML IV SCH ×2 (06:12→16:28)
[2018-08-24] MEDS: Insulin Lispro 100 Units/ML 3 ML Vial SUBCUT SCH ×4 (09:55→21:32)
[2018-08-24] MEDS: Finasteride 5 MG Tab PO SCH (09:56)
[2018-08-24] MEDS: Docusate Sodium 100 MG Cap PO SCH ×2 (09:56→21:31)
[2018-08-24] MEDS: Aspirin 81 MG Tab.EC PO SCH (09:56)
[2018-08-24] MEDS: Saccharomyces Boulardii (Probiotic) 250 MG Cap PO SCH ×2 (09:56→21:31)
--- NOTE | 2018-08-24 17:42 | PCM.PN ---
- General Info Date of Service: 08/24/18 Admission Dx/Problem (Free Text): 88 yo WM with DM, dementia, pacemaker admitted with gangrenous right second toe , started 7 weeks ago, visited local ham pumper, no abx prescribed. noted increased edema, erythema, was brought to ED. Surgery consulted, discussed. Admitted as IP for further treatment. 08/22/2018, denies pain, otherwise unchanged, no major events o/n, CT confirmed edema, no osteo of metatarsals. 08/23/18, no new events, scheduled for toe amputation 08/24/18, post op D1, no major events, dressing clean and dry, added glargine for better BG control, WBC improving, good PO intake, slightly elevated AG, likely due to combination of keto- and fasting acidosis, will monitor for now with addition of glargine, continue IVF. - Patient Data Vitals - Most Recent: Last Vital Signs Temp 98.8 F 08/24/18 15:11 Pulse 88 08/24/18 15:11 Resp 20 08/24/18 15:11 BP 111/49 L 08/24/18 15:11 Pulse Ox 92 L 08/24/18 15:11 Weight - Most Recent: 204 lb 14.4 oz I&O - Last 24 Hours: Intake & Output 08/24/18 08/24/18 08/24/18 03:59 11:59 19:59 Intake Total 1450 1784 Balance 1450 1784 Lab Results Last 24 Hours: Laboratory Results - last 24 hr 08/23/18 08/23/18 08/24/18 Range/Units 17:33 20:35 06:20 WBC (4.23-9.07) K/mm3 RBC (4.63-6.08) M/mm3 Hgb (13.7-17.5) gm/L Hct (40.1-51.0) % MCV (79.0-92.2) fl MCH (25.7-32.2) pg MCHC (32.2-35.5) g/dl RDW Std Deviation (35.1-43.9) fL Plt Count (163-337) K/mm3 MPV (9.4-12.3) fl Neut % (Auto) (34.0-67.9) % Lymph % (Auto) (21.8-53.1) % [place] % (Auto) (5.3-12.2) % Eos % (Auto) (0.8-7.0) Baso % (Auto) (0.1-1.2) % Neut # (Auto) (1.78-5.38) K/mm3 Lymph # (Auto) (1.32-3.57) K/mm3 [place] # (Auto) (0.30-0.82) K/mm3 Eos # (Auto) (0.04-0.54) K/mm3 Baso # (Auto) (0.01-0.08) K/mm3 Sodium (136-145) mEq/L Potassium (3.5-5.1) mEq/L Chloride (98-107) mEq/L Carbon Dioxide (21-32) mEq/L Anion Gap (5-15) BUN (7-18) mg/dL Creatinine (0.7-1.3) mg/dL Est Cr Clr Drug Dosing mL/min Estimated GFR (MDRD) (>60) mL/min BUN/Creatinine Ratio (14-18) Glucose (83-115) mg/dL POC Glucose 178 H 205 H 230 H (83-110) mg/dL Calcium (8.5-10.1) mg/dL Phosphorus (2.6-4.7) mg/dL Magnesium (1.8-2.4) mg/dl Total Bilirubin (0.2-1.0) mg/dL AST (15-37) U/L ALT (16-63) U/L Alkaline Phosphatase (46-116) U/L Creatine Kinase (39-308) U/L Total Protein (6.4-8.2) g/dl Albumin (3.4-5.0) g/dl Globulin gm/dL Albumin/Globulin Ratio (1-2) 08/24/18 08/24/18 08/24/18 Range/Units 06:45 06:45 06:45 WBC 11.13 H (4.23-9.07) K/mm3 RBC 3.21 L (4.63-6.08) M/mm3 Hgb 9.3 L (13.7-17.5) gm/L Hct 28.7 L (40.1-51.0) % MCV 89.4 (79.0-92.2) fl MCH 29.0 (25.7-32.2) pg MCHC 32.4 (32.2-35.5) g/dl RDW Std Deviation 46.6 H (35.1-43.9) fL Plt Count 331 (163-337) K/mm3 MPV 9.3 L (9.4-12.3) fl Neut % (Auto) 74.0 H (34.0-67.9) % Lymph % (Auto) 15.0 L (21.8-53.1) % [place] % (Auto) 8.0 (5.3-12.2) % Eos % (Auto) 2.3 (0.8-7.0) Baso % (Auto) 0.3 (0.1-1.2) % Neut # (Auto) 8.24 H (1.78-5.38) K/mm3 Lymph # (Auto) 1.67 (1.32-3.57) K/mm3 [place] # (Auto) 0.89 H (0.30-0.82) K/mm3 Eos # (Auto) 0.26 (0.04-0.54) K/mm3 Baso # (Auto) 0.03 (0.01-0.08) K/mm3 Sodium 137 (136-145) mEq/L Potassium 3.6 (3.5-5.1) mEq/L Chloride 102 (98-107) mEq/L Carbon Dioxide 22 (21-32) mEq/L Anion Gap 16.6 H (5-15) BUN 25 H (7-18) mg/dL Creatinine 1.5 H (0.7-1.3) mg/dL Est Cr Clr Drug Dosing 32.30 mL/min Estimated GFR (MDRD) 44 (>60) mL/min BUN/Creatinine Ratio 16.7 (14-18) Glucose 228 H (83-115) mg/dL POC Glucose (83-110) mg/dL Calcium 8.3 L (8.5-10.1) mg/dL Phosphorus 2.7 (2.6-4.7) mg/dL Magnesium 1.8 (1.8-2.4) mg/dl Total Bilirubin 1.2 H (0.2-1.0) mg/dL AST 13 L (15-37) U/L ALT 17 (16-63) U/L Alkaline Phosphatase 91 (46-116) U/L Creatine Kinase 51 (39-308) U/L Total Protein 7.0 (6.4-8.2) g/dl Albumin 2.4 L (3.4-5.0) g/dl Globulin 4.6 gm/dL Albumin/Globulin Ratio 0.5 L (1-2) 08/24/18 08/24/18 Range/Units 12:12 16:51 WBC (4.23-9.07) K/mm3 RBC (4.63-6.08) M/mm3 Hgb (13.7-17.5) gm/L Hct (40.1-51.0) % MCV (79.0-92.2) fl MCH (25.7-32.2) pg MCHC (32.2-35.5) g/dl RDW Std Deviation (35.1-43.9) fL Plt Count (163-337) K/mm3 MPV (9.4-12.3) fl Neut % (Auto) (34.0-67.9) % Lymph % (Auto) (21.8-53.1) % [place] % (Auto) (5.3-12.2) % Eos % (Auto) (0.8-7.0) Baso % (Auto) (0.1-1.2) % Neut # (Auto) (1.78-5.38) K/mm3 Lymph # (Auto) (1.32-3.57) K/mm3 [place] # (Auto) (0.30-0.82) K/mm3 Eos # (Auto) (0.04-0.54) K/mm3 Baso # (Auto) (0.01-0.08) K/mm3 Sodium (136-145) mEq/L Potassium (3.5-5.1) mEq/L Chloride (98-107) mEq/L Carbon Dioxide (21-32) mEq/L Anion Gap (5-15) BUN (7-18) mg/dL Creatinine (0.7-1.3) mg/dL Est Cr Clr Drug Dosing mL/min Estimated GFR (MDRD) (>60) mL/min BUN/Creatinine Ratio (14-18) Glucose (83-115) mg/dL POC Glucose 241 H 270 H (83-110) mg/dL Calcium (8.5-10.1) mg/dL Phosphorus (2.6-4.7) mg/dL Magnesium (1.8-2.4) mg/dl Total Bilirubin (0.2-1.0) mg/dL AST (15-37) U/L ALT (16-63) U/L Alkaline Phosphatase (46-116) U/L Creatine Kinase (39-308) U/L Total Protein (6.4-8.2) g/dl Albumin (3.4-5.0) g/dl Globulin gm/dL Albumin/Globulin Ratio (1-2) Taye Results Last 24 Hours: Microbiology 08/21/18 18:15 Aerobic Blood Culture - Preliminary Blood NO GROWTH AFTER 2 DAYS Anaerobic Blood Culture - Final Med Orders - Current: Current Medications Aspirin (Halfprin) 81 mg PO DAILY [facility] Last Admin: 08/24/18 09:56 Dose: 81 mg Carvedilol (Coreg) 12.5 mg PO BIDMEALS [facility] Last Admin: 08/24/18 06:11 Dose: 12.5 mg Docusate Sodium (Colace) 100 mg PO BID [facility] Last Admin: 08/24/18 09:56 Dose: 100 mg Finasteride (Proscar) 5 mg PO DAILY [facility] Last Admin: 08/24/18 09:56 Dose: 5 mg Heparin Sodium (Porcine) (Heparin Sodium) 5,000 units SUBCUT Q8H [facility] Last Admin: 08/24/18 12:33 Dose: 5,000 units Hydromorphone HCl (Dilaudid) 0.25 mg IVPUSH Q2H PRN PRN Reason: Pain (severe 7-10) Lactated Ringer's (Ringers, Lactated) 1,000 mls @ 100 mls/hr IV ASDIRECTED [facility] Last Admin: 08/24/18 16:28 Dose: 100 mls/hr Piperacillin Sod/Tazobactam (Sod 4.5 gm/ Sodium Chloride) 100 mls @ 25 mls/hr IV Q8H [facility] Last Admin: 08/24/18 10:16 Dose: 25 mls/hr Insulin Glargine (Lantus) 35 unit SUBCUT BEDTIME [facility] Insulin Human Lispro (Humalog) 0 unit SUBCUT QIDACANDBED [facility]; Protocol Last Admin: 08/24/18 12:31 Dose: 6 units Ondansetron HCl (Zofran) 4 mg IV Q4H PRN PRN Reason: Nausea/Vomiting Saccharomyces Boulardii (Florastor) 250 mg PO BID [facility] Last Admin: 08/24/18 09:56 Dose: 250 mg Simvastatin (Zocor) 10 mg PO BEDTIME [facility] Last Admin: 08/23/18 20:55 Dose: 10 mg Sodium Chloride (Saline Flush) 10 ml FLUSH ASDIRECTED PRN PRN Reason: Keep Vein Open Last Admin: 08/21/18 18:43 Dose: 10 ml Discontinued Medications Bupivacaine HCl (Sensorcaine-Mpf 0.5%) Confirm Administered Dose 10 ml .ROUTE .STK-MED ONE Stop: 08/23/18 12:56 Bupivacaine HCl (Marcaine 0.5%) Confirm Administered Dose 30 ml .ROUTE .STK-MED ONE Stop: 08/23/18 14:40 Heparin Sodium (Porcine) (Heparin Sodium) 5,000 units SUBCUT Q8H [facility] Last Admin: 08/23/18 04:35 Dose: 5,000 units Heparin Sodium (Porcine) (Heparin Sodium) 5,000 units SUBCUT Q8H [facility] Stop: 08/23/18 20:01 Last Admin: 08/23/18 11:34 Dose: Not Given Hydromorphone HCl (Dilaudid) 0.25 mg IVPUSH Q2H PRN PRN Reason: Pain (severe 7-10) Lidocaine HCl (Xylocaine-Mpf 1%) Confirm Administered Dose 2 mls @ as directed .ROUTE .STK-MED ONE Stop: 08/21/18 17:53 Last Admin: 08/21/18 17:58 Dose: Not Given Piperacillin Sod/Tazobactam (Sod 4.5 gm/ Sodium Chloride) 100 mls @ 25 mls/hr IV Q8H [facility] Last Admin: 08/24/18 01:42 Dose: 200 mls/hr Sodium Chloride (Normal Saline) 500 mls @ 999 mls/hr IV .BOLUS ONE Stop: 08/21/18 19:26 Last Admin: 08/21/18 19:18 Dose: 999 mls/hr Vancomycin HCl 1 gm/ Sodium (Chloride) 250 mls @ 250 mls/hr IV ONETIME ONE Stop: 08/21/18 20:34 Last Admin: 08/21/18 22:12 Dose: Not Given Vancomycin HCl 1 gm/Vancomycin HCl 500 mg/ Sodium Chloride 500 mls @ 333.025 mls/hr IV Q24H [facility] Last Admin: 08/21/18 21:44 Dose: 333.025 mls/hr Albumin Human (Flexbumin 25%) 25 gm in 100 mls @ 100 mls/hr IV ONETIME ONE Stop: 08/22/18 10:02 Last Admin: 08/22/18 09:36 Dose: 100 mls/hr Albumin Human (Flexbumin 25%) Confirm Administered Dose 50 mls @ as directed .ROUTE .STK-MED ONE Stop: 08/22/18 09:47 Last Admin: 08/22/18 10:17 Dose: 100 mls/hr Lactated Ringer's (Ringers, Lactated) Confirm Administered Dose 1,000 mls @ as directed .ROUTE .STK-MED ONE Stop: 08/23/18 12:57 Ketamine HCl (Ketalar) Confirm Administered Dose 500 mg .ROUTE .K-MED ONE Stop: 08/23/18 13:16 Lidocaine HCl (Xylocaine-Mpf 1%) 2 ml .XX ONETIME ONE Stop: 08/21/18 17:57 Last Admin: 08/21/18 17:58 Dose: 2 ml Lidocaine HCl (Xylocaine-Mpf 1%) Confirm Administered Dose 30 ml .ROUTE .STK- MED ONE Stop: 08/23/18 12:56 Metoclopramide HCl (Reglan) Confirm Administered Dose 10 mg .ROUTE .STK-MED ONE Stop: 08/23/18 12:58 Midazolam HCl (Versed 1 Mg/Ml) Confirm Administered Dose 2 mg .ROUTE .STK-MED ONE Stop: 08/23/18 13:17 Potassium Chloride (Potassium Chloride Solution) 40 meq PO ONETIME ONE Stop: 08/22/18 09:08 Last Admin: 08/22/18 09:47 Dose: 40 meq Vancomycin HCl (Pharmacy To Dose - Vancomycin) 1 dose .XX ASDIRECTED PARUL - Exam Physical Findings Comments:: General: Alert, Oriented (self only), Cooperative HEENT: Conjunctiva Clear, EOMI Neck: Supple, Trachea Midline Lungs: Clear to Auscultation, Normal Respiratory Effort. No: Wheezing Cardiovascular: Regular Rate, Normal S1, Normal S2. No: Rubs GI/Abdominal Exam: Normal Bowel Sounds, Soft, Non-Tender Extremities: Other (right second toe gangrenous, erythema, edema mid metatarsal. ) post amputation and debridement. Peripheral Pulses: 1+: Dorsalis Pedis (L), Dorsalis Pedis (R), 2+: Carotid (L), Carotid (R) Skin: Warm, Dry Neurological: Cranial Nerves Intact Neuro Extensive - Mental Status: Disorientation to Place Psychiatric: Normal Affect - Problem List & Annotations (1) Gangrenous toe SNOMED Code(s): 349059030 Code(s): I96 - GANGRENE, NOT ELSEWHERE CLASSIFIED Status: Acute Current Visit: Yes (2) Diabetes mellitus SNOMED Code(s): 56000681 Code(s): E11.9 - TYPE 2 DIABETES MELLITUS WITHOUT COMPLICATIONS Status: Acute Current Visit: Yes Qualifiers: Diabetes mellitus type: type 2 Diabetes mellitus director of convention services insulin use: with intermediate use Diabetes mellitus complication status: with circulatory complication Diabetes mellitus complication detail: with peripheral angiopathy with gangrene Qualified Code(s): E11.52 - Type 2 diabetes mellitus with diabetic peripheral angiopathy with gangrene; 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 Continue IV abx, pending BCx.Did not tolerate vancomycin, vein irritation vs. anaphylaxis, will hold, WBC improving with pip/tazo. 2. IVF. Scr 1.5, at baseline. 3. Surgery consultation, obtained, discussed. Underwent toe amputation 08/23/18. 4. Foot CT, no osteomyelitis of metatarsals. 5. placement SNF after discharge. 6. SSI, A1C. 7. DNR/DNI
[2018-08-24] MEDS: Insulin Glarg,Human.Rec.Analog 100 UNIT/ML ML SUBCUT SCH (21:29)
[2018-08-24] MEDS: Simvastatin 10 MG Tab PO SCH (21:31)
[2018-08-25] MEDS: Piperacillin/Tazobactam 4.5 GM in Sodium Chloride 0.9% 100 ML IV SCH ×3 (03:05→17:31)
[2018-08-25] MEDS: Lactated Ringers 1,000 ML IV SCH (03:07)
[2018-08-25] MEDS: Heparin Sodium 5,000 Units/ML Vial SUBCUT SCH ×3 (03:07→20:08)
[2018-08-25] MEDS: Carvedilol 12.5 MG Tab PO SCH ×2 (06:03→17:31)
[2018-08-25] MEDS: Insulin Lispro 100 Units/ML 3 ML Vial SUBCUT SCH ×4 (06:41→21:47)
[2018-08-25] MEDS ORDERED: Potassium Chloride 20 MEQ Tab.ER PO ONE (09:11)
[2018-08-25] MEDS: Saccharomyces Boulardii (Probiotic) 250 MG Cap PO SCH ×2 (09:33→20:09)
[2018-08-25] MEDS: Aspirin 81 MG Tab.EC PO SCH (09:33)
[2018-08-25] MEDS: Docusate Sodium 100 MG Cap PO SCH ×2 (09:33→20:09)
[2018-08-25] MEDS: Finasteride 5 MG Tab PO SCH (09:34)
--- NOTE | 2018-08-25 11:59 | PN ---
DATE OF SERVICE: 08/25/2018 SUBJECTIVE: David continues to improve. He has no complaints of pain related to the right foot. PHYSICAL EXAMINATION: He has minimal blanching erythema at the most distal part of the right foot at the location of the amputation that is pink. The wound is left open with a wet gauze, there is no foul smell. His labs showed an improvement of his leukocytosis now at 9.5 with a nearly resolved left shift. ASSESSMENT: Wet gangrene of the right 2nd toe with osteomyelitis. PLAN: The wound has to be left open with healing by secondary intention, closing an infected space certainly not a standard of care. This can be taken care of in the community with daily wet dressing changes as written in my postoperative orders. I understand he has placement for [facility]p bed, which I hope will be resolved sometime this week. I will continue the dressings. We can follow up with him in the office and offer any further recommendations. PAOLA /[id number]
[2018-08-25] MEDS ORDERED: Furosemide 40 MG/4 ML VIAL IVPUSH ONE (18:06)
--- NOTE | 2018-08-25 18:09 | PCM.PN ---
- General Info Date of Service: 08/25/18 Admission Dx/Problem (Free Text): 88 yo WM with DM, dementia, pacemaker admitted with gangrenous right second toe , started 7 weeks ago, visited local digital print operator, no abx prescribed. noted increased edema, erythema, was brought to ED. Surgery consulted, discussed. Admitted as IP for further treatment. 08/22/2018, denies pain, otherwise unchanged, no major events o/n, CT confirmed edema, no osteo of metatarsals. 08/23/18, no new events, scheduled for toe amputation 08/24/18, post op D1, no major events, dressing clean and dry, added glargine for better BG control, WBC improving, good PO intake, slightly elevated AG, likely due to combination of keto- and fasting acidosis, will monitor for now with addition of glargine, continue IVF. 08/25/18, overall doing well, no new complains or events, wound dressing is clean , WBC improving, AG normalized, SSI adjusted upward. - Patient Data Vitals - Most Recent: Last Vital Signs Temp 97.5 F 08/25/18 16:19 Pulse 65 08/25/18 17:31 Resp 16 08/25/18 16:19 BP 150/64 H 08/25/18 17:31 Pulse Ox 100 08/25/18 16:19 Weight - Most Recent: 206 lb 12.8 oz I&O - Last 24 Hours: Intake & Output 08/25/18 08/25/18 08/25/18 03:59 11:59 19:59 Intake Total 1735 1200 Balance 1735 1200 Lab Results Last 24 Hours: Laboratory Results - last 24 hr 08/24/18 08/25/18 08/25/18 Range/Units 21:06 05:56 05:56 WBC 9.52 H (4.23-9.07) K/mm3 RBC 3.01 L (4.63-6.08) M/mm3 Hgb 8.7 L (13.7-17.5) gm/L Hct 26.8 L (40.1-51.0) % MCV 89.0 (79.0-92.2) fl MCH 28.9 (25.7-32.2) pg MCHC 32.5 (32.2-35.5) g/dl RDW Std Deviation 46.9 H (35.1-43.9) fL Plt Count 328 (163-337) K/mm3 MPV 9.1 L (9.4-12.3) fl Neut % (Auto) 66.5 (34.0-67.9) % Lymph % (Auto) 21.2 L (21.8-53.1) % [place] % (Auto) 7.7 (5.3-12.2) % Eos % (Auto) 3.6 (0.8-7.0) Baso % (Auto) 0.4 (0.1-1.2) % Neut # (Auto) 6.33 H (1.78-5.38) K/mm3 Lymph # (Auto) 2.02 (1.32-3.57) K/mm3 [place] # (Auto) 0.73 (0.30-0.82) K/mm3 Eos # (Auto) 0.34 (0.04-0.54) K/mm3 Baso # (Auto) 0.04 (0.01-0.08) K/mm3 Sodium (136-145) mEq/L Potassium (3.5-5.1) mEq/L Chloride (98-107) mEq/L Carbon Dioxide (21-32) mEq/L Anion Gap (5-15) BUN (7-18) mg/dL Creatinine (0.7-1.3) mg/dL Est Cr Clr Drug Dosing mL/min Estimated GFR (MDRD) (>60) mL/min BUN/Creatinine Ratio (14-18) Glucose (83-115) mg/dL POC Glucose 279 H (83-110) mg/dL Calcium (8.5-10.1) mg/dL Phosphorus 2.5 L (2.6-4.7) mg/dL Magnesium 1.8 (1.8-2.4) mg/dl Total Bilirubin (0.2-1.0) mg/dL AST (15-37) U/L ALT (16-63) U/L Alkaline Phosphatase (46-116) U/L Total Protein (6.4-8.2) g/dl Albumin (3.4-5.0) g/dl Globulin gm/dL Albumin/Globulin Ratio (1-2) 08/25/18 08/25/18 08/25/18 Range/Units 05:56 06:35 11:43 WBC (4.23-9.07) K/mm3 RBC (4.63-6.08) M/mm3 Hgb (13.7-17.5) gm/L Hct (40.1-51.0) % MCV (79.0-92.2) fl MCH (25.7-32.2) pg MCHC (32.2-35.5) g/dl RDW Std Deviation (35.1-43.9) fL Plt Count (163-337) K/mm3 MPV (9.4-12.3) fl Neut % (Auto) (34.0-67.9) % Lymph % (Auto) (21.8-53.1) % [place] % (Auto) (5.3-12.2) % Eos % (Auto) (0.8-7.0) Baso % (Auto) (0.1-1.2) % Neut # (Auto) (1.78-5.38) K/mm3 Lymph # (Auto) (1.32-3.57) K/mm3 [place] # (Auto) (0.30-0.82) K/mm3 Eos # (Auto) (0.04-0.54) K/mm3 Baso # (Auto) (0.01-0.08) K/mm3 Sodium 141 (136-145) mEq/L Potassium 3.3 L (3.5-5.1) mEq/L Chloride 106 (98-107) mEq/L Carbon Dioxide 25 (21-32) mEq/L Anion Gap 13.3 (5-15) BUN 24 H (7-18) mg/dL Creatinine 1.5 H (0.7-1.3) mg/dL Est Cr Clr Drug Dosing 32.30 mL/min Estimated GFR (MDRD) 44 (>60) mL/min BUN/Creatinine Ratio 16.0 (14-18) Glucose 135 H (83-115) mg/dL POC Glucose 139 H 182 H (83-110) mg/dL Calcium 7.8 L (8.5-10.1) mg/dL Phosphorus (2.6-4.7) mg/dL Magnesium (1.8-2.4) mg/dl Total Bilirubin 0.7 (0.2-1.0) mg/dL AST 14 L (15-37) U/L ALT 16 (16-63) U/L Alkaline Phosphatase 77 (46-116) U/L Total Protein 6.3 L (6.4-8.2) g/dl Albumin 2.1 L (3.4-5.0) g/dl Globulin 4.2 gm/dL Albumin/Globulin Ratio 0.5 L (1-2) 08/25/18 Range/Units 17:08 WBC (4.23-9.07) K/mm3 RBC (4.63-6.08) M/mm3 Hgb (13.7-17.5) gm/L Hct (40.1-51.0) % MCV (79.0-92.2) fl MCH (25.7-32.2) pg MCHC (32.2-35.5) g/dl RDW Std Deviation (35.1-43.9) fL Plt Count (163-337) K/mm3 MPV (9.4-12.3) fl Neut % (Auto) (34.0-67.9) % Lymph % (Auto) (21.8-53.1) % [place] % (Auto) (5.3-12.2) % Eos % (Auto) (0.8-7.0) Baso % (Auto) (0.1-1.2) % Neut # (Auto) (1.78-5.38) K/mm3 Lymph # (Auto) (1.32-3.57) K/mm3 [place] # (Auto) (0.30-0.82) K/mm3 Eos # (Auto) (0.04-0.54) K/mm3 Baso # (Auto) (0.01-0.08) K/mm3 Sodium (136-145) mEq/L Potassium (3.5-5.1) mEq/L Chloride (98-107) mEq/L Carbon Dioxide (21-32) mEq/L Anion Gap (5-15) BUN (7-18) mg/dL Creatinine (0.7-1.3) mg/dL Est Cr Clr Drug Dosing mL/min Estimated GFR (MDRD) (>60) mL/min BUN/Creatinine Ratio (14-18) Glucose (83-115) mg/dL POC Glucose 262 H (83-110) mg/dL Calcium (8.5-10.1) mg/dL Phosphorus (2.6-4.7) mg/dL Magnesium (1.8-2.4) mg/dl Total Bilirubin (0.2-1.0) mg/dL AST (15-37) U/L ALT (16-63) U/L Alkaline Phosphatase (46-116) U/L Total Protein (6.4-8.2) g/dl Albumin (3.4-5.0) g/dl Globulin gm/dL Albumin/Globulin Ratio (1-2) Taye Results Last 24 Hours: Microbiology 08/21/18 18:15 Aerobic Blood Culture - Preliminary Blood NO GROWTH AFTER 3 DAYS Anaerobic Blood Culture - Final Med Orders - Current: Current Medications Aspirin (Halfprin) 81 mg PO DAILY [facility] Last Admin: 08/25/18 09:33 Dose: 81 mg Carvedilol (Coreg) 12.5 mg PO BIDMEALS [facility] Last Admin: 08/25/18 17:31 Dose: 12.5 mg Docusate Sodium (Colace) 100 mg PO BID [facility] Last Admin: 08/25/18 09:33 Dose: 100 mg Finasteride (Proscar) 5 mg PO DAILY [facility] Last Admin: 08/25/18 09:34 Dose: 5 mg Furosemide (Lasix) 40 mg IVPUSH NOW ONE Stop: 08/25/18 18:07 Heparin Sodium (Porcine) (Heparin Sodium) 5,000 units SUBCUT Q8H [facility] Last Admin: 08/25/18 12:56 Dose: 5,000 units Hydromorphone HCl (Dilaudid) 0.25 mg IVPUSH Q2H PRN PRN Reason: Pain (severe 7-10) Piperacillin Sod/Tazobactam (Sod 4.5 gm/ Sodium Chloride) 100 mls @ 25 mls/hr IV Q8H [facility] Last Admin: 08/25/18 17:31 Dose: 25 mls/hr Insulin Glargine (Lantus) 35 unit SUBCUT BEDTIME [facility] Last Admin: 08/24/18 21:29 Dose: 35 units Insulin Human Lispro (Humalog) 0 unit SUBCUT QIDACANDBED [facility]; Protocol Last Admin: 08/25/18 17:27 Dose: 9 units Ondansetron HCl (Zofran) 4 mg IV Q4H PRN PRN Reason: Nausea/Vomiting Saccharomyces Boulardii (Florastor) 250 mg PO BID [facility] Last Admin: 08/25/18 09:33 Dose: 250 mg Simvastatin (Zocor) 10 mg PO BEDTIME [facility] Last Admin: 08/24/18 21:31 Dose: 10 mg Sodium Chloride (Saline Flush) 10 ml FLUSH ASDIRECTED PRN PRN Reason: Keep Vein Open Last Admin: 08/21/18 18:43 Dose: 10 ml Discontinued Medications Bupivacaine HCl (Sensorcaine-Mpf 0.5%) Confirm Administered Dose 10 ml .ROUTE .STK-MED ONE Stop: 08/23/18 12:56 Bupivacaine HCl (Marcaine 0.5%) Confirm Administered Dose 30 ml .ROUTE .STK-MED ONE Stop: 08/23/18 14:40 Heparin Sodium (Porcine) (Heparin Sodium) 5,000 units SUBCUT Q8H [facility] Last Admin: 08/23/18 04:35 Dose: 5,000 units Heparin Sodium (Porcine) (Heparin Sodium) 5,000 units SUBCUT Q8H [facility] Stop: 08/23/18 20:01 Last Admin: 08/23/18 11:34 Dose: Not Given Hydromorphone HCl (Dilaudid) 0.25 mg IVPUSH Q2H PRN PRN Reason: Pain (severe 7-10) Lidocaine HCl (Xylocaine-Mpf 1%) Confirm Administered Dose 2 mls @ as directed .ROUTE .STK-MED ONE Stop: 08/21/18 17:53 Last Admin: 08/21/18 17:58 Dose: Not Given Piperacillin Sod/Tazobactam (Sod 4.5 gm/ Sodium Chloride) 100 mls @ 25 mls/hr IV Q8H [facility] Last Admin: 08/24/18 01:42 Dose: 200 mls/hr Sodium Chloride (Normal Saline) 500 mls @ 999 mls/hr IV .BOLUS ONE Stop: 08/21/18 19:26 Last Admin: 08/21/18 19:18 Dose: 999 mls/hr Vancomycin HCl 1 gm/ Sodium (Chloride) 250 mls @ 250 mls/hr IV ONETIME ONE Stop: 08/21/18 20:34 Last Admin: 08/21/18 22:12 Dose: Not Given Lactated Ringer's (Ringers, Lactated) 1,000 mls @ 100 mls/hr IV ASDIRECTED [facility] Last Admin: 08/25/18 03:07 Dose: 100 mls/hr Vancomycin HCl 1 gm/Vancomycin HCl 500 mg/ Sodium Chloride 500 mls @ 333.025 mls/hr IV Q24H [facility] Last Admin: 08/21/18 21:44 Dose: 333.025 mls/hr Albumin Human (Flexbumin 25%) 25 gm in 100 mls @ 100 mls/hr IV ONETIME ONE Stop: 08/22/18 10:02 Last Admin: 08/22/18 09:36 Dose: 100 mls/hr Albumin Human (Flexbumin 25%) Confirm Administered Dose 50 mls @ as directed .ROUTE .STK-MED ONE Stop: 08/22/18 09:47 Last Admin: 08/22/18 10:17 Dose: 100 mls/hr Lactated Ringer's (Ringers, Lactated) Confirm Administered Dose 1,000 mls @ as directed .ROUTE .STK-MED ONE Stop: 08/23/18 12:57 Ketamine HCl (Ketalar) Confirm Administered Dose 500 mg .ROUTE .STK-MED ONE Stop: 08/23/18 13:16 Lidocaine HCl (Xylocaine-Mpf 1%) 2 ml .XX ONETIME ONE Stop: 08/21/18 17:57 Last Admin: 08/21/18 17:58 Dose: 2 ml Lidocaine HCl (Xylocaine-Mpf 1%) Confirm Administered Dose 30 ml .ROUTE .STK- MED ONE Stop: 08/23/18 12:56 Metoclopramide HCl (Reglan) Confirm Administered Dose 10 mg .ROUTE .STK-MED ONE Stop: 08/23/18 12:58 Midazolam HCl (Versed 1 Mg/Ml) Confirm Administered Dose 2 mg .ROUTE .STK-MED ONE Stop: 08/23/18 13:17 Potassium Chloride (Potassium Chloride Solution) 40 meq PO ONETIME ONE Stop: 08/22/18 09:08 Last Admin: 08/22/18 09:47 Dose: 40 meq Potassium Chloride (Klor-Con M20) 60 meq PO ONETIME ONE Stop: 08/25/18 09:12 Last Admin: 08/25/18 09:49 Dose: 60 meq Vancomycin HCl (Pharmacy To Dose - Vancomycin) 1 dose .XX ASDIRECTED [facility] - Exam Physical Findings Comments:: General: Alert, Oriented (self only), Cooperative HEENT: Conjunctiva Clear, EOMI Neck: Supple, Trachea Midline Lungs: Clear to Auscultation, Normal Respiratory Effort. No: Wheezing Cardiovascular: Regular Rate, Normal S1, Normal S2. No: Rubs GI/Abdominal Exam: Normal Bowel Sounds, Soft, Non-Tender Extremities: Other (right second toe gangrenous, erythema, edema mid metatarsal. ) post amputation and debridement. 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 Diabetes mellitus complication status: with circulatory complication Diabetes mellitus complication detail: with peripheral angiopathy with gangrene Qualified Code(s): E11.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 Continue IV abx, pending BCx.Did not tolerate vancomycin, vein irritation vs. anaphylaxis, will hold, WBC improving with pip/tazo. 2. IVF. Scr 1.5, at baseline. 3. Surgery consultation, obtained, discussed. Underwent toe amputation 08/23/18. 4. Foot CT, no osteomyelitis of metatarsals. 5. placement SNF after discharge. 6. SSI, A1C. 7. DNR/DNI
[2018-08-25] MEDS: Insulin Glarg,Human.Rec.Analog 100 UNIT/ML ML SUBCUT SCH (20:09)
[2018-08-25] MEDS: Simvastatin 10 MG Tab PO SCH (20:09)
[2018-08-26] MEDS: Piperacillin/Tazobactam 4.5 GM in Sodium Chloride 0.9% 100 ML IV SCH ×2 (02:38→09:46)
[2018-08-26] MEDS: Heparin Sodium 5,000 Units/ML Vial SUBCUT SCH ×2 (05:04→11:15)
[2018-08-26] MEDS: Insulin Lispro 100 Units/ML 3 ML Vial SUBCUT SCH ×2 (06:14→11:14)
[2018-08-26] MEDS: Carvedilol 12.5 MG Tab PO SCH (06:52)
[2018-08-26 06:57] VITALS: BP 138/75
[2018-08-26] MEDS: Saccharomyces Boulardii (Probiotic) 250 MG Cap PO SCH (08:02)
[2018-08-26] MEDS: Docusate Sodium 100 MG Cap PO SCH (08:02)
[2018-08-26] MEDS: Finasteride 5 MG Tab PO SCH (08:03)
[2018-08-26] MEDS: Aspirin 81 MG Tab.EC PO SCH (08:03)
--- NOTE | 2018-08-26 08:38 | PN ---
DATE OF SERVICE: 08/24/2018 SUBJECTIVE: The patient had his toe amputated yesterday for wet gangrene. He had air tracking along the soft tissue and bone, clearly had osteomyelitis. I took his amputation down to the base of the toe, down to the head of the metatarsal. The wound was packed and left open per the standard of care. This morning, he has substantially improved blanching erythema with expected edema also improved on physical exam. I saw a marginal bump in his white count this morning with a left shift. ASSESSMENT: Wet gangrene of the right 2nd toe with cellulitis and osteomyelitis. PLAN: Continue wet dressings changed daily. I will continue to monitor. I will have a look at his white count tomorrow. MMNICOLE /[id number]
--- NOTE | 2018-08-26 10:54 | PCM.PN ---
- General Info Date of Service: 08/26/18 Admission Dx/Problem (Free Text): 88 yo WM with DM, dementia, pacemaker admitted with gangrenous right second toe , started 7 weeks ago, visited local cardiac specialist, no abx prescribed. noted increased edema, erythema, was brought to ED. Surgery consulted, discussed. Admitted as IP for further treatment. 08/22/2018, denies pain, otherwise unchanged, no major events o/n, CT confirmed edema, no osteo of metatarsals. 08/23/18, no new events, scheduled for toe amputation 08/24/18, post op D1, no major events, dressing clean and dry, added glargine for better BG control, WBC improving, good PO intake, slightly elevated AG, likely due to combination of keto- and fasting acidosis, will monitor for now with addition of glargine, continue IVF. 08/25/18, overall doing well, no new complains or events, wound dressing is clean , WBC improving, AG normalized, SSI adjusted upward. 08/26/18, no major events, WBC gradually improving, started PT, placement pending. - Patient Data Vitals - Most Recent: Last Vital Signs Temp 99.0 F 08/26/18 07:50 Pulse 64 08/26/18 06:57 Resp 16 08/26/18 07:50 BP 138/75 08/26/18 06:57 Pulse Ox 92 L 08/26/18 06:57 Weight - Most Recent: 206 lb 4.8 oz I&O - Last 24 Hours: Intake & Output 08/25/18 08/26/18 08/26/18 19:59 03:59 11:59 Intake Total 1520 520 Balance 1520 520 Lab Results Last 24 Hours: Laboratory Results - last 24 hr 08/25/18 08/25/18 08/25/18 Range/Units 06:35 11:43 17:08 WBC (4.23-9.07) K/mm3 RBC (4.63-6.08) M/mm3 Hgb (13.7-17.5) gm/L Hct (40.1-51.0) % MCV (79.0-92.2) fl MCH (25.7-32.2) pg MCHC (32.2-35.5) g/dl RDW Std Deviation (35.1-43.9) fL Plt Count (163-337) K/mm3 MPV (9.4-12.3) fl Neut % (Auto) (34.0-67.9) % Lymph % (Auto) (21.8-53.1) % [place] % (Auto) (5.3-12.2) % Eos % (Auto) (0.8-7.0) Baso % (Auto) (0.1-1.2) % Neut # (Auto) (1.78-5.38) K/mm3 Lymph # (Auto) (1.32-3.57) K/mm3 [place] # (Auto) (0.30-0.82) K/mm3 Eos # (Auto) (0.04-0.54) K/mm3 Baso # (Auto) (0.01-0.08) K/mm3 Sodium (136-145) mEq/L Potassium (3.5-5.1) mEq/L Chloride (98-107) mEq/L Carbon Dioxide (21-32) mEq/L Anion Gap (5-15) BUN (7-18) mg/dL Creatinine (0.7-1.3) mg/dL Est Cr Clr Drug Dosing mL/min Estimated GFR (MDRD) (>60) mL/min BUN/Creatinine Ratio (14-18) Glucose (83-115) mg/dL POC Glucose 139 H 182 H 262 H (83-110) mg/dL Calcium (8.5-10.1) mg/dL Phosphorus (2.6-4.7) mg/dL Magnesium (1.8-2.4) mg/dl Troponin I (0.00-0.056) ng/mL NT-Pro-B Natriuret Pep (0-450) pg/mL 08/25/18 08/26/18 08/26/18 Range/Units 20:05 06:01 06:02 WBC (4.23-9.07) K/mm3 RBC (4.63-6.08) M/mm3 Hgb (13.7-17.5) gm/L Hct (40.1-51.0) % MCV (79.0-92.2) fl MCH (25.7-32.2) pg MCHC (32.2-35.5) g/dl RDW Std Deviation (35.1-43.9) fL Plt Count (163-337) K/mm3 MPV (9.4-12.3) fl Neut % (Auto) (34.0-67.9) % Lymph % (Auto) (21.8-53.1) % [place] % (Auto) (5.3-12.2) % Eos % (Auto) (0.8-7.0) Baso % (Auto) (0.1-1.2) % Neut # (Auto) (1.78-5.38) K/mm3 Lymph # (Auto) (1.32-3.57) K/mm3 [place] # (Auto) (0.30-0.82) K/mm3 Eos # (Auto) (0.04-0.54) K/mm3 Baso # (Auto) (0.01-0.08) K/mm3 Sodium (136-145) mEq/L Potassium (3.5-5.1) mEq/L Chloride (98-107) mEq/L Carbon Dioxide (21-32) mEq/L Anion Gap (5-15) BUN (7-18) mg/dL Creatinine (0.7-1.3) mg/dL Est Cr Clr Drug Dosing mL/min Estimated GFR (MDRD) (>60) mL/min BUN/Creatinine Ratio (14-18) Glucose (83-115) mg/dL POC Glucose 246 H 89 (83-110) mg/dL Calcium (8.5-10.1) mg/dL Phosphorus 2.7 (2.6-4.7) mg/dL Magnesium 1.8 (1.8-2.4) mg/dl Troponin I (0.00-0.056) ng/mL NT-Pro-B Natriuret Pep (0-450) pg/mL 08/26/18 08/26/18 08/26/18 Range/Units 06:02 06:02 06:02 WBC 9.27 H (4.23-9.07) K/mm3 RBC 2.86 L (4.63-6.08) M/mm3 Hgb 8.4 L (13.7-17.5) gm/L Hct 25.7 L (40.1-51.0) % MCV 89.9 (79.0-92.2) fl MCH 29.4 (25.7-32.2) pg MCHC 32.7 (32.2-35.5) g/dl RDW Std Deviation 46.2 H (35.1-43.9) fL Plt Count 368 H (163-337) K/mm3 MPV 8.9 L (9.4-12.3) fl Neut % (Auto) 65.1 (34.0-67.9) % Lymph % (Auto) 19.4 L (21.8-53.1) % [place] % (Auto) 10.0 (5.3-12.2) % Eos % (Auto) 4.7 (0.8-7.0) Baso % (Auto) 0.4 (0.1-1.2) % Neut # (Auto) 6.02 H (1.78-5.38) K/mm3 Lymph # (Auto) 1.80 (1.32-3.57) K/mm3 [place] # (Auto) 0.93 H (0.30-0.82) K/mm3 Eos # (Auto) 0.44 (0.04-0.54) K/mm3 Baso # (Auto) 0.04 (0.01-0.08) K/mm3 Sodium 140 (136-145) mEq/L Potassium 3.5 (3.5-5.1) mEq/L Chloride 105 (98-107) mEq/L Carbon Dioxide 27 (21-32) mEq/L Anion Gap 11.5 (5-15) BUN 24 H (7-18) mg/dL Creatinine 1.5 H (0.7-1.3) mg/dL Est Cr Clr Drug Dosing 32.30 mL/min Estimated GFR (MDRD) 44 (>60) mL/min BUN/Creatinine Ratio 16.0 (14-18) Glucose 90 (83-115) mg/dL POC Glucose (83-110) mg/dL Calcium 8.2 L (8.5-10.1) mg/dL Phosphorus (2.6-4.7) mg/dL Magnesium (1.8-2.4) mg/dl Troponin I 0.055 (0.00-0.056) ng/mL NT-Pro-B Natriuret Pep 7586 H (0-450) pg/mL Taye Results Last 24 Hours: Microbiology 08/21/18 18:15 Aerobic Blood Culture - Preliminary Blood NO GROWTH AFTER 4 DAYS Anaerobic Blood Culture - Final Med Orders - Current: Current Medications Aspirin (Halfprin) 81 mg PO DAILY [facility] Last Admin: 08/26/18 08:03 Dose: 81 mg Carvedilol (Coreg) 12.5 mg PO BIDMEALS [facility] Last Admin: 08/26/18 06:52 Dose: 12.5 mg Docusate Sodium (Colace) 100 mg PO BID [facility] Last Admin: 08/26/18 08:02 Dose: 100 mg Finasteride (Proscar) 5 mg PO DAILY [facility] Last Admin: 08/26/18 08:03 Dose: 5 mg Heparin Sodium (Porcine) (Heparin Sodium) 5,000 units SUBCUT Q8H [facility] Last Admin: 08/26/18 05:04 Dose: 5,000 units Hydromorphone HCl (Dilaudid) 0.25 mg IVPUSH Q2H PRN PRN Reason: Pain (severe 7-10) Piperacillin Sod/Tazobactam (Sod 4.5 gm/ Sodium Chloride) 100 mls @ 25 mls/hr IV Q8H [facility] Last Admin: 08/26/18 09:46 Dose: 25 mls/hr Insulin Glargine (Lantus) 35 unit SUBCUT BEDTIME [facility] Last Admin: 08/25/18 20:09 Dose: 35 units Insulin Human Lispro (Humalog) 0 unit SUBCUT QIDACANDBED [facility]; Protocol Last Admin: 08/26/18 06:14 Dose: Not Given Ondansetron HCl (Zofran) 4 mg IV Q4H PRN PRN Reason: Nausea/Vomiting Saccharomyces Boulardii (Florastor) 250 mg PO BID [facility] Last Admin: 08/26/18 08:02 Dose: 250 mg Simvastatin (Zocor) 10 mg PO BEDTIME [facility] Last Admin: 08/25/18 20:09 Dose: 10 mg Sodium Chloride (Saline Flush) 10 ml FLUSH ASDIRECTED PRN PRN Reason: Keep Vein Open Last Admin: 08/21/18 18:43 Dose: 10 ml Discontinued Medications Bupivacaine HCl (Sensorcaine-Mpf 0.5%) Confirm Administered Dose 10 ml .ROUTE .STK-MED ONE Stop: 08/23/18 12:56 Bupivacaine HCl (Marcaine 0.5%) Confirm Administered Dose 30 ml .ROUTE .STK-MED ONE Stop: 08/23/18 14:40 Furosemide (Lasix) 40 mg IVPUSH NOW ONE Stop: 08/25/18 18:07 Last Admin: 08/25/18 18:27 Dose: 40 mg Heparin Sodium (Porcine) (Heparin Sodium) 5,000 units SUBCUT Q8H [facility] Last Admin: 08/23/18 04:35 Dose: 5,000 units Heparin Sodium (Porcine) (Heparin Sodium) 5,000 units SUBCUT Q8H [facility] Stop: 08/23/18 20:01 Last Admin: 08/23/18 11:34 Dose: Not Given Hydromorphone HCl (Dilaudid) 0.25 mg IVPUSH Q2H PRN PRN Reason: Pain (severe 7-10) Lidocaine HCl (Xylocaine-Mpf 1%) Confirm Administered Dose 2 mls @ as directed .ROUTE .STK-MED ONE Stop: 08/21/18 17:53 Last Admin: 08/21/18 17:58 Dose: Not Given Piperacillin Sod/Tazobactam (Sod 4.5 gm/ Sodium Chloride) 100 mls @ 25 mls/hr IV Q8H [facility] Last Admin: 08/24/18 01:42 Dose: 200 mls/hr Sodium Chloride (Normal Saline) 500 mls @ 999 mls/hr IV .BOLUS ONE Stop: 08/21/18 19:26 Last Admin: 08/21/18 19:18 Dose: 999 mls/hr Vancomycin HCl 1 gm/ Sodium (Chloride) 250 mls @ 250 mls/hr IV ONETIME ONE Stop: 08/21/18 20:34 Last Admin: 08/21/18 22:12 Dose: Not Given Lactated Ringer's (Ringers, Lactated) 1,000 mls @ 100 mls/hr IV ASDIRECTED [facility] Last Admin: 08/25/18 03:07 Dose: 100 mls/hr Vancomycin HCl 1 gm/Vancomycin HCl 500 mg/ Sodium Chloride 500 mls @ 333.025 mls/hr IV Q24H [facility] Last Admin: 08/21/18 21:44 Dose: 333.025 mls/hr Albumin Human (Flexbumin 25%) 25 gm in 100 mls @ 100 mls/hr IV ONETIME ONE Stop: 08/22/18 10:02 Last Admin: 08/22/18 09:36 Dose: 100 mls/hr Albumin Human (Flexbumin 25%) Confirm Administered Dose 50 mls @ as directed .ROUTE .STK-MED ONE Stop: 08/22/18 09:47 Last Admin: 08/22/18 10:17 Dose: 100 mls/hr Lactated Ringer's (Ringers, Lactated) Confirm Administered Dose 1,000 mls @ as directed .ROUTE .STK-MED ONE Stop: 08/23/18 12:57 Ketamine HCl (Ketalar) Confirm Administered Dose 500 mg .ROUTE .STK-MED ONE Stop: 08/23/18 13:16 Lidocaine HCl (Xylocaine-Mpf 1%) 2 ml .XX ONETIME ONE Stop: 08/21/18 17:57 Last Admin: 08/21/18 17:58 Dose: 2 ml Lidocaine HCl (Xylocaine-Mpf 1%) Confirm Administered Dose 30 ml .ROUTE .STK- MED ONE Stop: 08/23/18 12:56 Metoclopramide HCl (Reglan) Confirm Administered Dose 10 mg .ROUTE .STK-MED ONE Stop: 08/23/18 12:58 Midazolam HCl (Versed 1 Mg/Ml) Confirm Administered Dose 2 mg .ROUTE .STK-MED ONE Stop: 08/23/18 13:17 Potassium Chloride (Potassium Chloride Solution) 40 meq PO ONETIME ONE Stop: 08/22/18 09:08 Last Admin: 08/22/18 09:47 Dose: 40 meq Potassium Chloride (Klor-Con M20) 60 meq PO ONETIME ONE Stop: 08/25/18 09:12 Last Admin: 08/25/18 09:49 Dose: 60 meq Vancomycin HCl (Pharmacy To Dose - Vancomycin) 1 dose .XX ASDIRECTED [facility] - Exam Physical Findings Comments:: General: Alert, Oriented (self only), Cooperative HEENT: Conjunctiva Clear, EOMI Neck: Supple, Trachea Midline Lungs: Clear to Auscultation, Normal Respiratory Effort. No: Wheezing Cardiovascular: Regular Rate, Normal S1, Normal S2. No: Rubs GI/Abdominal Exam: Normal Bowel Sounds, Soft, Non-Tender Extremities: Other (right second toe gangrenous, erythema, edema mid metatarsal. ) post amputation and debridement. Peripheral Pulses: 1+: Dorsalis Pedis (L), Dorsalis Pedis (R), 2+: Carotid (L), Carotid (R) Skin: Warm, Dry Neurological: Cranial Nerves Intact Neuro Extensive - Mental Status: Disorientation to Place Psychiatric: Normal Affect - Problem List & Annotations (1) Gangrenous toe SNOMED Code(s): 532339827 Code(s): I96 - GANGRENE, NOT ELSEWHERE CLASSIFIED Status: Acute Current Visit: Yes (2) Diabetes mellitus SNOMED Code(s): 44740172 Code(s): E11.9 - TYPE 2 DIABETES MELLITUS WITHOUT COMPLICATIONS Status: Acute Current Visit: Yes Qualifiers: Diabetes mellitus type: type 2 Diabetes mellitus assisted insulin use: with 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 Continue IV abx, pending BCx.Did not tolerate vancomycin, vein irritation vs. anaphylaxis, will hold, WBC improving with pip/tazo. 2. IVF. Scr 1.5, at baseline. 3. Surgery consultation, obtained, discussed. Underwent toe amputation 08/23/18. 4. Foot CT, no osteomyelitis of metatarsals. 5. placement SNF after discharge. 6. SSI, A1C. 7. DNR/DNI
--- NOTE | 2018-08-26 11:12 | PCM.DCSUM1 ---
Discharge Summary - Hospital Course Free Text/Narrative:: 88 yo WM with DM, dementia, pacemaker admitted with gangrenous right second toe , started 7 weeks ago, visited local [facility], no abx prescribed. noted increased edema, erythema, was brought to ED. Surgery consulted, discussed. Admitted as IP for further treatment. 08/22/2018, denies pain, otherwise unchanged, no major events o/n, CT confirmed edema, no osteo of metatarsals. 08/23/18, no new events, scheduled for toe amputation 08/24/18, post op D1, no major events, dressing clean and dry, added glargine for better BG control, WBC improving, good PO intake, slightly elevated AG, likely due to combination of keto- and fasting acidosis, will monitor for now with addition of glargine, continue IVF. 08/25/18, overall doing well, no new complains or events, wound dressing is clean , WBC improving, AG normalized, SSI adjusted upward. 08/26/18, no major events, WBC gradually improving, started PT, placement pending.Being accepted at SNF, discharged in fair condition with wound care and surgery follow up within 10 days. 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 insulin use: with senior living use Diabetes mellitus complication status: with circulatory complication Diabetes mellitus complication detail: with peripheral angiopathy with gangrene Qualified Code(s): E11.52 - Type 2 diabetes mellitus with diabetic peripheral angiopathy with gangrene; Z79.4 - roasterman (current) use of insulin - Patient Summary/Data Consults: Consultations 08/21/18 19:16 Consult to Physician [CONS] Urgent 08/22/18 18:39 Consult to Occupational Therapy [OT Evaluation and Treatment] [CONS] Routine Consult to Physical Therapy [PT Evaluation and Treatment] [CONS] Routine - Discharge Plan Prescriptions/Med Rec: Amoxicillin/Clavulanate K [Augmentin 500-125 MG] 1 tab PO Q12H 10 Days #20 tab Home Medications: Home Meds Dutasteride [Avodart] 0.5 mg PO DAILY 12/10/13 [History] Furosemide [Lasix] 40 mg PO DAILY 12/10/13 [History] Isosorbide Mononitrate [Imdur] 60 mg PO DAILY 12/10/13 [History] Nebivolol [Bystolic] 20 mg PO DAILY 12/10/13 [History] atorvaSTATin [Lipitor] 10 mg PO DAILY 12/10/13 [History] Nitroglycerin 0.4 mg SL ONCALL PRN #30 12/15/13 [Rx] Amoxicillin/Clavulanate K [Augmentin 500-125 MG] 1 tab PO Q12H 10 Days #20 tab 08/26/18 [Rx] Aspirin [Halfprin] 81 mg PO DAILY tab.ec 08/26/18 [Rx] Docusate Sodium [Colace] 100 mg PO BID cap 08/26/18 [Rx] Insulin Glarg,Human.Rec.Analog [Lantus] 35 unit SUBCUT BEDTIME ml 08/26/18 [Rx] Insulin Lispro [HumaLOG] 0 unit SUBCUT QIDACANDBED vial 08/26/18 [Rx] Saccharomyces Boulardii [Florastor] 250 mg PO BID cap 08/26/18 [Rx] Patient Handouts: Bone and Joint Infections, Adult, Cellulitis, Adult, Dementia Caregiver Guide Referrals: Murphy Gan MD [Primary Care Provider] - - Discharge Summary/Plan Comment DC Time >30 min.: No - Patient Data Vitals - Most Recent: Last Vital Signs Temp 99.0 F 08/26/18 07:50 Pulse 64 08/26/18 06:57 Resp 16 08/26/18 07:50 BP 138/75 08/26/18 06:57 Pulse Ox 92 L 08/26/18 06:57 Weight - Most Recent: 206 lb 4.8 oz I&O - Last 24 hours: Intake & Output 08/25/18 08/26/18 08/26/18 19:59 03:59 11:59 Intake Total 1520 520 Balance 1520 520 Lab Results - Last 24 hrs: Laboratory Results - last 24 hr 08/25/18 08/25/18 08/25/18 Range/Units 06:35 11:43 17:08 WBC (4.23-9.07) K/mm3 RBC (4.63-6.08) M/mm3 Hgb (13.7-17.5) gm/L Hct (40.1-51.0) % MCV (79.0-92.2) fl MCH (25.7-32.2) pg MCHC (32.2-35.5) g/dl RDW Std Deviation (35.1-43.9) fL Plt Count (163-337) K/mm3 MPV (9.4-12.3) fl Neut % (Auto) (34.0-67.9) % Lymph % (Auto) (21.8-53.1) % [place] % (Auto) (5.3-12.2) % Eos % (Auto) (0.8-7.0) Baso % (Auto) (0.1-1.2) % Neut # (Auto) (1.78-5.38) K/mm3 Lymph # (Auto) (1.32-3.57) K/mm3 [place] # (Auto) (0.30-0.82) K/mm3 Eos # (Auto) (0.04-0.54) K/mm3 Baso # (Auto) (0.01-0.08) K/mm3 Sodium (136-145) mEq/L Potassium (3.5-5.1) mEq/L Chloride (98-107) mEq/L Carbon Dioxide (21-32) mEq/L Anion Gap (5-15) BUN (7-18) mg/dL Creatinine (0.7-1.3) mg/dL Est Cr Clr Drug Dosing mL/min Estimated GFR (MDRD) (>60) mL/min BUN/Creatinine Ratio (14-18) Glucose (83-115) mg/dL POC Glucose 139 H 182 H 262 H (83-110) mg/dL Calcium (8.5-10.1) mg/dL Phosphorus (2.6-4.7) mg/dL Magnesium (1.8-2.4) mg/dl Troponin I (0.00-0.056) ng/mL NT-Pro-B Natriuret Pep (0-450) pg/mL 08/25/18 08/26/18 08/26/18 Range/Units 20:05 06:01 06:02 WBC (4.23-9.07) K/mm3 RBC (4.63-6.08) M/mm3 Hgb (13.7-17.5) gm/L Hct (40.1-51.0) % MCV (79.0-92.2) fl MCH (25.7-32.2) pg MCHC (32.2-35.5) g/dl RDW Std Deviation (35.1-43.9) fL Plt Count (163-337) K/mm3 MPV (9.4-12.3) fl Neut % (Auto) (34.0-67.9) % Lymph % (Auto) (21.8-53.1) % [place] % (Auto) (5.3-12.2) % Eos % (Auto) (0.8-7.0) Baso % (Auto) (0.1-1.2) % Neut # (Auto) (1.78-5.38) K/mm3 Lymph # (Auto) (1.32-3.57) K/mm3 [place] # (Auto) (0.30-0.82) K/mm3 Eos # (Auto) (0.04-0.54) K/mm3 Baso # (Auto) (0.01-0.08) K/mm3 Sodium (136-145) mEq/L Potassium (3.5-5.1) mEq/L Chloride (98-107) mEq/L Carbon Dioxide (21-32) mEq/L Anion Gap (5-15) BUN (7-18) mg/dL Creatinine (0.7-1.3) mg/dL Est Cr Clr Drug Dosing mL/min Estimated GFR (MDRD) (>60) mL/min BUN/Creatinine Ratio (14-18) Glucose (83-115) mg/dL POC Glucose 246 H 89 (83-110) mg/dL Calcium (8.5-10.1) mg/dL Phosphorus 2.7 (2.6-4.7) mg/dL Magnesium 1.8 (1.8-2.4) mg/dl Troponin I (0.00-0.056) ng/mL NT-Pro-B Natriuret Pep (0-450) pg/mL 08/26/18 08/26/18 08/26/18 Range/Units 06:02 06:02 06:02 WBC 9.27 H (4.23-9.07) K/mm3 RBC 2.86 L (4.63-6.08) M/mm3 Hgb 8.4 L (13.7-17.5) gm/L Hct 25.7 L (40.1-51.0) % MCV 89.9 (79.0-92.2) fl MCH 29.4 (25.7-32.2) pg MCHC 32.7 (32.2-35.5) g/dl RDW Std Deviation 46.2 H (35.1-43.9) fL Plt Count 368 H (163-337) K/mm3 MPV 8.9 L (9.4-12.3) fl Neut % (Auto) 65.1 (34.0-67.9) % Lymph % (Auto) 19.4 L (21.8-53.1) % [place] % (Auto) 10.0 (5.3-12.2) % Eos % (Auto) 4.7 (0.8-7.0) Baso % (Auto) 0.4 (0.1-1.2) % Neut # (Auto) 6.02 H (1.78-5.38) K/mm3 Lymph # (Auto) 1.80 (1.32-3.57) K/mm3 [place] # (Auto) 0.93 H (0.30-0.82) K/mm3 Eos # (Auto) 0.44 (0.04-0.54) K/mm3 Baso # (Auto) 0.04 (0.01-0.08) K/mm3 Sodium 140 (136-145) mEq/L Potassium 3.5 (3.5-5.1) mEq/L Chloride 105 (98-107) mEq/L Carbon Dioxide 27 (21-32) mEq/L Anion Gap 11.5 (5-15) BUN 24 H (7-18) mg/dL Creatinine 1.5 H (0.7-1.3) mg/dL Est Cr Clr Drug Dosing 32.30 mL/min Estimated GFR (MDRD) 44 (>60) mL/min BUN/Creatinine Ratio 16.0 (14-18) Glucose 90 (83-115) mg/dL POC Glucose (83-110) mg/dL Calcium 8.2 L (8.5-10.1) mg/dL Phosphorus (2.6-4.7) mg/dL Magnesium (1.8-2.4) mg/dl Troponin I 0.055 (0.00-0.056) ng/mL NT-Pro-B Natriuret Pep 7586 H (0-450) pg/mL ROSALINE Results - Last 24 hrs: Microbiology 08/21/18 18:15 Aerobic Blood Culture - Preliminary Blood NO GROWTH AFTER 4 DAYS Anaerobic Blood Culture - Final Med Orders - Current: Current Medications Aspirin (Halfprin) 81 mg PO DAILY [facility] Last Admin: 08/26/18 08:03 Dose: 81 mg Carvedilol (Coreg) 12.5 mg PO BIDMEALS [facility] Last Admin: 08/26/18 06:52 Dose: 12.5 mg Docusate Sodium (Colace) 100 mg PO BID [facility] Last Admin: 08/26/18 08:02 Dose: 100 mg Finasteride (Proscar) 5 mg PO DAILY [facility] Last Admin: 08/26/18 08:03 Dose: 5 mg Heparin Sodium (Porcine) (Heparin Sodium) 5,000 units SUBCUT Q8H [facility] Last Admin: 08/26/18 05:04 Dose: 5,000 units Hydromorphone HCl (Dilaudid) 0.25 mg IVPUSH Q2H PRN PRN Reason: Pain (severe 7-10) Piperacillin Sod/Tazobactam (Sod 4.5 gm/ Sodium Chloride) 100 mls @ 25 mls/hr IV Q8H [facility] Last Admin: 08/26/18 09:46 Dose: 25 mls/hr Insulin Glargine (Lantus) 35 unit SUBCUT BEDTIME [facility] Last Admin: 08/25/18 20:09 Dose: 35 units Insulin Human Lispro (Humalog) 0 unit SUBCUT QIDACANDBED [facility]; Protocol Last Admin: 08/26/18 06:14 Dose: Not Given Ondansetron HCl (Zofran) 4 mg IV Q4H PRN PRN Reason: Nausea/Vomiting Saccharomyces Boulardii (Florastor) 250 mg PO BID [facility] Last Admin: 08/26/18 08:02 Dose: 250 mg Simvastatin (Zocor) 10 mg PO BEDTIME [facility] Last Admin: 08/25/18 20:09 Dose: 10 mg Sodium Chloride (Saline Flush) 10 ml FLUSH ASDIRECTED PRN PRN Reason: Keep Vein Open Last Admin: 08/21/18 18:43 Dose: 10 ml Discontinued Medications Bupivacaine HCl (Sensorcaine-Mpf 0.5%) Confirm Administered Dose 10 ml .ROUTE .STK-MED ONE Stop: 08/23/18 12:56 Bupivacaine HCl (Marcaine 0.5%) Confirm Administered Dose 30 ml .ROUTE .STK-MED ONE Stop: 08/23/18 14:40 Furosemide (Lasix) 40 mg IVPUSH NOW ONE Stop: 08/25/18 18:07 Last Admin: 08/25/18 18:27 Dose: 40 mg Heparin Sodium (Porcine) (Heparin Sodium) 5,000 units SUBCUT Q8H [facility] Last Admin: 08/23/18 04:35 Dose: 5,000 units Heparin Sodium (Porcine) (Heparin Sodium) 5,000 units SUBCUT Q8H [facility] Stop: 08/23/18 20:01 Last Admin: 08/23/18 11:34 Dose: Not Given Hydromorphone HCl (Dilaudid) 0.25 mg IVPUSH Q2H PRN PRN Reason: Pain (severe 7-10) Lidocaine HCl (Xylocaine-Mpf 1%) Confirm Administered Dose 2 mls @ as directed .ROUTE .STK-MED ONE Stop: 08/21/18 17:53 Last Admin: 08/21/18 17:58 Dose: Not Given Piperacillin Sod/Tazobactam (Sod 4.5 gm/ Sodium Chloride) 100 mls @ 25 mls/hr IV Q8H [facility] Last Admin: 08/24/18 01:42 Dose: 200 mls/hr Sodium Chloride (Normal Saline) 500 mls @ 999 mls/hr IV .BOLUS ONE Stop: 08/21/18 19:26 Last Admin: 08/21/18 19:18 Dose: 999 mls/hr Vancomycin HCl 1 gm/ Sodium (Chloride) 250 mls @ 250 mls/hr IV ONETIME ONE Stop: 08/21/18 20:34 Last Admin: 08/21/18 22:12 Dose: Not Given Lactated Ringer's (Ringers, Lactated) 1,000 mls @ 100 mls/hr IV ASDIRECTED [facility] Last Admin: 08/25/18 03:07 Dose: 100 mls/hr Vancomycin HCl 1 gm/Vancomycin HCl 500 mg/ Sodium Chloride 500 mls @ 333.025 mls/hr IV Q24H [facility] Last Admin: 08/21/18 21:44 Dose: 333.025 mls/hr Albumin Human (Flexbumin 25%) 25 gm in 100 mls @ 100 mls/hr IV ONETIME ONE Stop: 08/22/18 10:02 Last Admin: 08/22/18 09:36 Dose: 100 mls/hr Albumin Human (Flexbumin 25%) Confirm Administered Dose 50 mls @ as directed .ROUTE .STK-MED ONE Stop: 08/22/18 09:47 Last Admin: 08/22/18 10:17 Dose: 100 mls/hr Lactated Ringer's (Ringers, Lactated) Confirm Administered Dose 1,000 mls @ as directed .ROUTE .STK-MED ONE Stop: 08/23/18 12:57 Ketamine HCl (Ketalar) Confirm Administered Dose 500 mg .ROUTE .STK-MED ONE Stop: 08/23/18 13:16 Lidocaine HCl (Xylocaine-Mpf 1%) 2 ml .XX ONETIME ONE Stop: 08/21/18 17:57 Last Admin: 08/21/18 17:58 Dose: 2 ml Lidocaine HCl (Xylocaine-Mpf 1%) Confirm Administered Dose 30 ml .ROUTE .STK- MED ONE Stop: 08/23/18 12:56 Metoclopramide HCl (Reglan) Confirm Administered Dose 10 mg .ROUTE .STK-MED ONE Stop: 08/23/18 12:58 Midazolam HCl (Versed 1 Mg/Ml) Confirm Administered Dose 2 mg .ROUTE .STK-MED ONE Stop: 08/23/18 13:17 Potassium Chloride (Potassium Chloride Solution) 40 meq PO ONETIME ONE Stop: 08/22/18 09:08 Last Admin: 08/22/18 09:47 Dose: 40 meq Potassium Chloride (Klor-Con M20) 60 meq PO ONETIME ONE Stop: 08/25/18 09:12 Last Admin: 08/25/18 09:49 Dose: 60 meq Vancomycin HCl (Pharmacy To Dose - Vancomycin) 1 dose .XX ASDIRECTED [facility] - Exam Physical Findings Comments:: General: Alert, Oriented (self only), Cooperative HEENT: Conjunctiva Clear, EOMI Neck: Supple, Trachea Midline Lungs: Clear to Auscultation, Normal Respiratory Effort. No: Wheezing Cardiovascular: Regular Rate, Normal S1, Normal S2. No: Rubs GI/Abdominal Exam: Normal Bowel Sounds, Soft, Non-Tender Extremities: Other (right second toe gangrenous, erythema, edema mid metatarsal. ) post amputation and debridement. Peripheral Pulses: 1+: Dorsalis Pedis (L), Dorsalis Pedis (R), 2+: Carotid (L), Carotid (R) Skin: Warm, Dry Neurological: Cranial Nerves Intact Neuro Extensive - Mental Status: Disorientation to Place Psychiatric: Normal Affect
== END 2018-08-26 12:45 | DRG 256 ==
LOC: JD.ED 16:24 → JD.MS 19:40
PROVIDERS: ADMIT Internal Medicine; ATTEND Internal Medicine
PROC: 0Y6R0Z0 Detachment at Right 2nd Toe, Complete, Open Approach (ICD-10-PCS; principal; 2018-08-23)
DX: E11.52 Type 2 diabetes mellitus with diabetic peripheral angiopathy with gangrene (principal); F03.90 Unspecified dementia, unspecified severity, without behavioral disturbance, psychotic disturbance, mood disturbance, and anxiety; L03.115 Cellulitis of right lower limb; I96 Gangrene, not elsewhere classified; E87.2 Acidosis; M86.9 Osteomyelitis, unspecified; E11.69 Type 2 diabetes mellitus with other specified complication; E11.621 Type 2 diabetes mellitus with foot ulcer; L97.529 Non-pressure chronic ulcer of other part of left foot with unspecified severity; I10 Essential (primary) hypertension; H54.7 Unspecified visual loss; G30.9 Alzheimer's disease, unspecified; Z79.899 Other long term (current) drug therapy; Z87.01 Personal history of pneumonia (recurrent); F02.80 Dementia in other diseases classified elsewhere, unspecified severity, without behavioral disturbance, psychotic disturbance, mood disturbance, and anxiety; L53.9 Erythematous condition, unspecified; R26.2 Difficulty in walking, not elsewhere classified; M79.674 Pain in right toe(s); R41.0 Disorientation, unspecified; R53.1 Weakness; R32 Unspecified urinary incontinence; Z79.4 Long term (current) use of insulin; Z95.0 Presence of cardiac pacemaker; Z66 Do not resuscitate; Z88.5 Allergy status to narcotic agent; Z88.2 Allergy status to sulfonamides; Z88.8 Allergy status to other drugs, medicaments and biological substances; Z79.82 Long term (current) use of aspirin; Z90.49 Acquired absence of other specified parts of digestive tract; Z85.46 Personal history of malignant neoplasm of prostate; Z96.649 Presence of unspecified artificial hip joint; Z96.659 Presence of unspecified artificial knee joint
CPT/HCPCS: 36415; 71045; 80053; 82962; 83605; 83880; 85007; 85027; 87040; 96365; 99285; J2001; J2543; J7030; J7040; 51701; 73700-26-RT; 73700-RT; 80048; 81001; 82550; 83036; 83735; 84100; 84443; 84484; 85025; 85610; 85730; 93005; 97110-GP; 97161-GP; 97167-GO; 97530-GO; 97530-GP; 99284; A9270-GY; J1644; J1815-GY; J1940; J2250; J2765; J3370; J3490; J7120; P9047